=== PATIENT | female | born 1990 | race Caucasian/White ===

== ENCOUNTER 2020-08-08 07:30 | Outpatient (REF) | payer OTHER, SELFPAY ==
[2020-08-08 07:49] LABS: COVID-19 Test Negative (Negative)
== END 2020-08-08 07:31 | disposition home or self-care (01) ==
LOC: HO.LAB 07:30
PROVIDERS: PCP Internal Medicine; Visit Provider Internal Medicine
DX: Z20.828 Contact with and (suspected) exposure to other viral communicable diseases (principal)
CPT/HCPCS: 87635

== ENCOUNTER → 2020-08-14 14:50 | Outpatient (BNVA) | payer OTHER, SELFPAY | PROVIDERS: PCP Internal Medicine; Referring Provider Internal Medicine; Visit Provider Advanced Practice Midwife | DX: Z76.89 Persons encountering health services in other specified circumstances (principal) ==

== ENCOUNTER 2020-09-26 10:36 | Day surgery (SDC) | payer OTHER, SELFPAY ==
[2020-09-26 10:47] VITALS: BMI 33.8
--- NOTE | 2020-09-26 10:52 | P.CONAN_ITS ---
[facility] [place] Past Medical History Medical History Hypothyroid Monoallelic mutation of CDH1 gene Obesity (BMI 30-39.9) Family History Family History Father Hypercholesteremia Sleep apnea Stomach cancer HTN (hypertension) Mother Hypercholesteremia HTN (hypertension) COPD (chronic obstructive pulmonary disease) Migraine Maternal Grandfather Heart attack CVD (cardiovascular disease) HTN (hypertension) Maternal Grandmother Heart attack Bladder cancer Emphysema lung HTN (hypertension) CVD (cardiovascular disease) Paternal Grandmother Heart attack CHF (congestive heart failure) COPD (chronic obstructive pulmonary disease) Osteoporosis Paternal Grandfather Heart attack CHF (congestive heart failure) Diabetes mellitus Metastatic cancer to liver Lung metastasis Maternal Aunt Diabetes mellitus Bladder cancer Surgical History Surgical History Hx of endoscopy Hx of tonsillectomy Hx of wisdom tooth extraction Social History Social History (Updated 08/14/20 @ 15:02 by KONSTANTIN Machado) Alcohol intake: never Smoking Status: Never smoker Advance Directives: No Advance Directives Information Provided: No Gender identity: female Meds Allergies Allergy/AdvReac Type Severity Reaction Status Date / Time amoxicillin [AMOXICILLIN] Allergy Unknown HIVES, Rash Verified 08/14/20 15:01 Home Medications Medication Instructions Recorded Confirmed Type vitamin with calcium 1 tab PO DAILY 08/14/20 History no.72-iron 27 mg-folic acid 1 mg tablet Exam Exam Date and Time: September 26, 2020 1052 Airway Mallampati Class: I TM Dist: >3cm Neck ROM: Full Heart: RRR Lungs: CTA BL Assessment and Plan Assessment Anesthesia Assessment: Anesthesia Plan Discussed and Chart Reviewed Final Anesthetic Review NPO: Yes (Sip with water) ASA Class: II Final Preanesthetic Review: Consent Obtained/Reviewed and Anes Risks/Benef Reviewed Patient Risk: Intermediate Procedure Risk: Intermediate Anesthetic Plan Anesthetic Plan: MAC: Disposition: Standard PACU
--- NOTE | 2020-09-26 10:53 | MHC.SHP ---
Pre-Procedural Eval Section A The patient is an INPATIENT: No Changes since office visit: No Cold of Flu in the past 2 weeks, No New Medical Problems, No Changes in Medication and No Patient answered all questions The History & Physical has been completed within 30 days and I have reviewed it.: Yes Section B Chief Complaint: genetic gastric cancer syndrome Allergies: Allergies Allergy/AdvReac Type Severity Reaction Status Date / Time amoxicillin [AMOXICILLIN] Allergy Unknown HIVES, Rash Verified 08/14/20 15:01 Plan Patient has been examined and remains a candidate for the planned procedure
[2020-09-26 11:01] VITALS: BP 127/87; PULSE 101; RESP 16; TEMP 36.4; O2SAT 98
[2020-09-26 12:06] VITALS: BP 110/70; PULSE 91; RESP 14; TEMP 36.4; O2SAT 97
--- NOTE | 2020-09-26 12:10 | PM.OP ---
Brief Operative Note Date of Service: 09/26/20 Pre-op diagnosis: hereditary diffuse gastric cancer syndrome Post-op diagnosis: same (normal upper endoscopy) Procedure: EGD Surgeon: Jairo Lopez Anesthesia: MAC Estimated blood loss (mL): 10 Pathology: other (gastric biopsies) Condition: stable Disposition: PACU
[2020-09-26 12:21] VITALS: BP 113/79; PULSE 86; RESP 16; O2SAT 100
[2020-09-26 12:36] VITALS: BP 114/57; PULSE 67; RESP 16; O2SAT 100
--- NOTE | 2020-09-26 12:39 | OP_ITS ---
SURGEON: Jairo Lopez MD INDICATIONS: Hereditary diffuse gastric cancer syndrome. PREOPERATIVE DIAGNOSIS: POSTOPERATIVE DIAGNOSIS: PROCEDURE PERFORMED: Upper endoscopy with biopsy. ESTIMATED BLOOD LOSS: COMPLICATIONS: ANESTHESIA: ASSISTANTS: SPECIMENS: MEDICATIONS: Monitored anesthesia care. DESCRIPTION OF PROCEDURE: History and physical performed. The risks and benefits of the procedure were explained to the patient. Informed consent was obtained. The patient was placed in the left lateral decubitus position. The Olympus video gastroscope was introduced into the esophagus, stomach, and duodenum. Examination was performed and the scope was removed. She tolerated the procedure well and was taken to recovery area in stable condition. FINDINGS: Esophagus: The esophagus was normal. Stomach: The stomach showed no evidence of masses, ulcers, or polyps. The mucosa was normal. Irrigation with simethicone and acetylcysteine was used. Distensibility appeared normal. There were no pale areas or raised lesions. Biopsies were obtained in the antrum, pre-pyloric area, body, transition zone, fundus, and cardia. Duodenum: The bulb and second portion were normal. IMPRESSION: Normal upper endoscopy. RECOMMENDATION: Repeat upper endoscopy recommended in 1 year. MD CHERIE Messina/ANNALISE / [phone]
--- NOTE | 2020-09-26 13:01 | HO.POSTANES ---
Post Anesthesia Evaluation Post Anesthesia Evaluation Vital Signs: Vital Signs Temp Pulse Resp BP Pulse Ox 09/26/20 12:36 97.5 F 67 16 114/57 L 100 09/26/20 12:21 86 16 113/79 100 09/26/20 12:06 97.5 F 91 14 110/70 97 09/26/20 11:01 97.5 F 101 H 16 127/87 98 Anesthesia: Monitored Mental Status: Awake Pain Control: Satisfactory Nausea/Vomiting: None Hydration: Adequate Anesthesia-Related Issues: No Anes. Related Issues
== END 2020-09-26 13:05 | disposition home or self-care (01) ==
PROVIDERS: PCP Internal Medicine; Visit Provider Internal Medicine Gastroenterology
PROC: 0DJ08ZZ Inspection of Upper Intestinal Tract, Via Natural or Artificial Opening Endoscopic (ICD-10-PCS; CPT 43235; principal; 2020-09-26 11:30)
DX: Z15.09 Genetic susceptibility to other malignant neoplasm (principal); Z83.71 Family history of colonic polyps; Z88.0 Allergy status to penicillin
CPT/HCPCS: 43239; 88305; 88341; 88342

== ENCOUNTER 2020-10-27 07:12 | Outpatient (REF) | payer OTHER, SELFPAY ==
[2020-10-27 07:38] LABS: COVID-19 Test Negative (Negative)
== END 2020-10-27 07:13 | disposition home or self-care (01) ==
LOC: HO.EMPCOV 07:12
PROVIDERS: Visit Provider Internal Medicine
DX: Z20.822 Contact with and (suspected) exposure to COVID-19 (principal)
CPT/HCPCS: 36415; 87635; C9803

== ENCOUNTER 2020-10-27 12:21 | Outpatient (REF) | payer OTHER, SELFPAY ==
[2020-10-27 13:35] LABS: Anion Gap 16 (12-20); Blood Urea Nitrogen 9 mg/dL (9-16); Calcium 9.3 mg/dL (8.4-10.2); Carbon Dioxide 24 mmol/L (22-29); Chloride 106 mmol/L (96-108); Estimated Glomerular Filt Rate > 60; Glucose Random 95 mg/dL (60-115); Sodium 142 mmol/L (135-145)
== END 2020-10-27 12:22 | disposition home or self-care (01) ==
LOC: HO.LNP 12:21
PROVIDERS: Visit Provider Surgery Surgical Oncology
DX: C16.9 Malignant neoplasm of stomach, unspecified (principal)
CPT/HCPCS: 80048

== ENCOUNTER 2020-10-31 07:44 | Outpatient (REF) | payer OTHER, SELFPAY ==
--- NOTE | 2020-10-31 07:47 | CT_ITS ---
EXAMINATION: CT ABDOMEN AND PELVIS WITHOUT AND WITH CONTRAST CLINICAL INFORMATION: Gastric cancer. COMPARISON: CT abdomen and pelvis 06/16/2015 TECHNIQUE: Multidetector volumetric imaging was performed of the abdomen and pelvis before and after the IV administration of 85 mL of Omnipaque 300 intravenous contrast. Sagittal and coronal reformatted images were obtained on the technologist's workstation. This CT examination was performed using dose optimization techniques as appropriate, variously including the following: *Automated exposure control *Adjustment of mA and/or kV according to patient size (this includes techniques or standardized protocols for targeted exams where dose is matched to indication/reason for exam; i.e. extremities or head) *Use of iterative reconstruction technique DLP: 555 mGy-cm FINDINGS: LUNG BASES: Minimal atelectatic changes seen in the right lung base. The heart size is normal. LIVER, GALLBLADDER, AND BILIARY TREE: The liver is normal in size, shape, and hypoattenuated. No focal hepatic lesion or biliary ductal dilatation is present. The gallbladder is unremarkable with no evidence of radiopaque gallstones, gallbladder wall thickening, or obvious pericholecystic inflammatory changes. PANCREAS: Unremarkable. SPLEEN: Unremarkable. ADRENAL GLANDS: Unremarkable. KIDNEYS AND URETERS: The kidneys are normal in size, shape, and attenuation. No hydronephrosis, hydroureter, or calculi seen. No perinephric stranding. BLADDER: Unremarkable. GASTROINTESTINAL TRACT: There is scattered stool seen in the right colon. Oral contrast opacifies the entire colon and the small bowel loops which are normal caliber. There is nonspecific minimal mural prominence of transverse and descending colon likely due to nondistention. The appendix is normal caliber. There is nonspecific mild mural thickening of the fundal stomach. The rest of the stomach appears normal caliber. The fat surrounding the stomach is preserved. ABDOMINAL WALL: No significant hernia is appreciated. LYMPH NODES: There are small shotty lymph nodes in the retroperitoneum and ileocolic mesentery with the largest lymph node measuring 0.92 x 0.6 cm in ileocolic mesentery. VASCULAR: Unremarkable. PELVIC VISCERA: The uterus is anteverted and appears unremarkable. No adnexal mass seen. OSSEOUS STRUCTURES: Unremarkable. CT/CT abdomen pelvis wo/w con IMPRESSION: Nonspecific mild mural thickening of the fundal stomach but no abnormal fat stranding or abnormal lymph nodes seen in the vicinity. Nonspecific mild mural thickening of the nondistended transverse and descending colon. No pericolic fat stranding.
[2020-10-31] MEDS: iohexoL 350 MG/ML 100 ML INFUS..BTL IV (09:08)
== END 2020-10-31 07:45 | disposition home or self-care (01) ==
LOC: HO.CT 07:44
PROVIDERS: Visit Provider Surgery Surgical Oncology
DX: C16.9 Malignant neoplasm of stomach, unspecified (principal)
CPT/HCPCS: 74178; Q9967

== ENCOUNTER 2020-11-12 07:15 | Outpatient (REF) | payer OTHER, SELFPAY ==
[2020-11-12 07:24] LABS: COVID-19 Test Positive (Negative)
== END 2020-11-12 07:16 | disposition home or self-care (01) ==
LOC: HO.EMPCOV 07:15
PROVIDERS: Visit Provider Internal Medicine
DX: Z20.822 Contact with and (suspected) exposure to COVID-19 (principal)
CPT/HCPCS: 36415; 87635; C9803

== ENCOUNTER 2020-12-02 11:14 | Outpatient (REF) | payer OTHER, SELFPAY ==
--- NOTE | ~2020-12-02 | PE_ITS ---
EXAMINATION: Fluorine-18 FDG PET/CT Scan CLINICAL INDICATION: Initial treatment management. Gastric cancer, staging. PROCEDURE: 79 minutes following the intravenous administration of 16.3 mCi of fluorine 18 FDG, images from the base of the skull to the mid thighs were obtained using a combined PET/CT scanner with CT scan based attenuation correction. No oral contrast was administered. No intravenous contrast was administered. Transverse, coronal, sagittal, and volume reconstruction projections were obtained. The patient's blood glucose as determined by a finger stick, was 68 mg/dl immediately prior to injection. Total CT exam dose-length product 610 mGy-cm * These CT images were obtained using dose optimization techniques as appropriate, variously including the following: Automated exposure control * Adjustment of mA and/or kV according to patient size (this includes techniques or standardized protocols for targeted exams where dose is matched to indication/reason for exam; i.e. extremities or head) * Use of iterative reconstruction technique COMPARISON: No previous PET/CT scan is available for comparison. The diagnostic CT scan of the abdomen and pelvis, dated 10/31/2020, is available for comparison. FINDINGS: (Slice numbers described in this report are numbered superiorly to inferiorly with slice #1 in the head) NECK AND VISUALIZED HEAD: Bilateral cervical level 2A FDG avid lymph nodes are present, the most prominent on the left showing SUVmax 5.8, slice 31/267 and measuring 1.2 x 1.0 cm in largest transverse dimensions. There is also prominently increased FDG activity in the midline tongue base showing SUVmax 7.6, slice 33/267 and this appears to be associated with some soft tissue thickening and obliteration of the left vallecula. No other foci of abnormal FDG activity are present in the neck or visualized head. All of the other activity appears physiological. There is no additional cervical lymphadenopathy. THORAX: No foci of abnormal FDG activity are present within the chest. No pulmonary nodules are visualized. There is no pleural or pericardial fluid, or pneumothorax. There is a cluster of subcentimeter right axillary lymph nodes which show mildly increased FDG activity, SUVmax 3.8, slice 71/267. No additional axillary, mediastinal, or supraclavicular lymphadenopathy is present. ABDOMEN AND PELVIS: Bilateral FDG avid adnexal foci are present, likely representing physiological ovarian activity. There is also prominent focus of increased FDG activity in the cecal region, and this is associated with some soft tissue density that may represent some bowel wall thickening at this site. This shows SUVmax 11.4, slice 171/267. No other suspicious foci of increased FDG activity are present in the abdomen or pelvis. Mild diffuse FDG activity in the remainder the gastrointestinal tract is noted and is probably physiological. There are no foci of abnormally increased FDG activity in the stomach. The liver, gallbladder, spleen, kidneys, adrenal glands and pancreas appear unremarkable. There is no retroperitoneal, mesenteric, pelvic or inguinal lymphadenopathy. MUSCULOSKELETAL: No foci of abnormal FDG activity are present in the osseous structures. There is a subcentimeter dense sclerotic focus in the left posterior aspect of the T7 vertebral body with no associated abnormal FDG activity, probably a benign bone island. No additional suspicious sclerotic or lytic lesions are visualized. VASCULAR: No significant abnormalities are present. PET/PET CT fusion skull to thigh IMPRESSION: 1. No FDG avid lesion is visualized in the stomach. 2. There is focally increased activity in the midline tongue base with some associated soft tissue swelling. This is suspicious for a malignant focus. Further characterization of this with direct visualization and IV contrast enhanced CT imaging of the neck soft tissues is recommended. 3. Bilateral FDG avid cervical level IIa lymphadenopathy and FDG avid right axillary lymph nodes are noted. These are nonspecific and could be either inflammatory or malignant in etiology. 4. Bilateral FDG avid adnexal foci probably represent physiological ovarian activity but are nonspecific. 5. An FDG avid soft tissue focus is present in the cecum. While this could represent physiological bowel activity, the very focal appearance is of concern for a malignant lesion. Both this the previously described adnexal foci could be further characterized with MRI of the abdomen and pelvis performed without and with intravenous contrast. 6. No additional abnormalities suspicious for metastatic or other malignant lesions are noted.
== END 2020-12-02 11:15 | disposition home or self-care (01) ==
LOC: HO.PET 11:14
PROVIDERS: Visit Provider Surgery Surgical Oncology
DX: Z13.89 Encounter for screening for other disorder (principal)

== ENCOUNTER → 2021-01-06 13:25 | Outpatient (BNV) | payer OTHER, SELFPAY | PROVIDERS: PCP Internal Medicine; Visit Provider Internal Medicine | DX: D50.9 Iron deficiency anemia, unspecified (principal); Z85.028 Personal history of other malignant neoplasm of stomach | CPT/HCPCS: 99204; 99213; 99214 ==

== ENCOUNTER 2021-03-27 07:50 | Outpatient (REF) | payer OTHER, SELFPAY ==
[2021-03-27 07:55] LABS: MANUAL DIFF FLAG NO
[2021-03-27 08:04] LABS: Basophils Percent Auto 0.5 % (0-2); Eosinophils Absolute Auto 0.1 X10*3/uL (0.0-0.4); Eosinophils Percent Auto 1.2 % (0-4); Hematocrit 38.7 % (37-47); Hemoglobin 12.4 g/dl (12.0-16.0); Imm Gran Abs Auto 0.01 X10*3/uL (0.00-0.03); Imm Gran Pct Auto 0.2 % (0.0-0.4); Lymphocytes Absolute Auto 2.6 X10*3/uL (1.2-4.9); Mean Corpuscular Hemoglobin 27.2 pg (27.0-33.0); Mean Corpuscular Volume 84.9 fL (80-98); Mean Platelet Volume 10.5 fL (9.4-12.3); Monocytes Absolute Auto 0.6 X10*3/uL (0.1-1.2); Monocytes Percent Auto 8.7 % (2-11); Neutrophils Absolute Auto 3.3 X10*3/uL (2.0-8.3); Neutrophils Percent Auto 49.4 % (45-73); Platelet Count 262 X10*3/uL (160-400); Red Blood Count 4.56 X10*6/uL (4.20-5.50); Red Cell Distribution Width 13.5 % (11.0-16.0); White Blood Count 6.6 X10*3/uL (4.8-10.8)
[2021-03-27 08:28] LABS: Alanine Aminotransferase 18 U/L (0-31); Albumin Level 4.8 g/dL (3.5-5.0); Alkaline Phosphatase 111 U/L (39-117); Anion Gap 11 (12-20); Aspartate Amino Transferase 20 U/L (5-31); Bilirubin Total 0.4 mg/dL (0.0-1.0); Blood Urea Nitrogen 14 mg/dL (9-16); Calcium 9.6 mg/dL (8.4-10.2); Carbon Dioxide 27 mmol/L (22-29); Chloride 107 mmol/L (96-108); Estimated Glomerular Filt Rate > 60; Glucose Random 71 mg/dL (60-115); Iron 58 mcg/dL (30-160); Magnesium 2.2 mg/dL (1.6-2.6); Percent Iron Saturation 16 % (15-50); Sodium 141 mmol/L (135-145); Total Iron Binding Capacity 356 mcg/dL (228-428); Total Protein 7.8 g/dL (6.5-8.0); Unsaturated Iron Binding 298 ug/dL
[2021-03-27 08:49] LABS: Free T4 (Free Thyroxine) 1.18 ng/dL (0.71-1.85); Thyroid Stimulating Hormone 1.77 uIU/mL (0.32-4.0); Vitamin D 25-OH Total 36.4 ng/mL (>30)
[2021-03-27 09:17] LABS: Folate > 20.0 ng/mL (> or = 4.0); Vitamin B12 307 pg/mL (200-900)
[2021-03-31 10:02] LABS: Calcium (PTHI) 9.9 mg/dL (8.6-10.2); PTHI 41 pg/mL (14-64)
== END 2021-03-27 07:51 | disposition home or self-care (01) ==
LOC: HO.LNP 07:50
PROVIDERS: Visit Provider Internal Medicine
DX: E03.9 Hypothyroidism, unspecified (principal); D64.9 Anemia, unspecified; Z98.890 Other specified postprocedural states
CPT/HCPCS: 80053; 82306; 82607; 82746; 83540; 83735; 83970; 84439; 84443; 85025

== ENCOUNTER 2021-03-31 11:04 | Outpatient (REF) | payer OTHER, SELFPAY ==
--- NOTE | ~2021-03-31 | PE_ITS ---
EXAMINATION: PET/CT FUSION SKULL TO THIGH CLINICAL INFORMATION: Gastric CA. Restaging. COMPARISON: 12/02/2020 PET/CT fusion. TECHNIQUE: Following intravenous administration of 14.7 mCi of F-18 FDG in the right antecubital vein, whole-body PET imaging study was performed 60 minutes later. 3.[address] transmission scan was obtained for correlative imaging without oral IV contrast. Baseline glucose measures 8 mg/DL. Radiation dose DLP 465.92 mGy-cm. FINDINGS: SKULL BASE AND NECK: There is no abnormal metabolic activity seen skull base or the neck. Previously seen level 2A lymph node metabolic activity has resolved. There is moderate metabolic activity seen in the mylohyoid and pharyngeal constrictor muscles similar to previous study. Activity seen in the base of the tongue on the previous exam is not visualized on the present exam. No additional metabolic activity seen. On CT visualized brain parenchyma is normal. No calvarial abnormality seen. The bilateral paranasal sinuses and mastoid air cells are well aerated. No abnormal-sized neck lymph node seen. No abnormality seen in the floor of the tongue or the oral cavity to suspect annular lesion. CHEST: No abnormal metabolic activity seen in the axilla, mediastinum or the lung parenchyma. On CT the lungs are well expanded and clear. Minimal atelectatic changes are seen in the right lung base. The heart size is normal. There is no mediastinal mass or lymphadenopathy seen. ABDOMEN AND PELVIS: There is no abnormal metabolic activity seen in the abdomen especially in the left upper quadrant. Nonspecific metabolic activity seen in the right colon with an SUV of 2.40. Normal physiological activity seen in both kidneys, ureters and bladder. Mild physiological activity seen in bilateral adnexa likely ovaries probably related to menses. There are no radiopaque renal calculi seen. There is scattered stool and gas seen in the colon. There are postsurgical gastric changes present. No recurrent mass is identified. No abnormal-sized lymph node seen. Suspect 2 mm small radiopaque calculi upper midpole left kidney. MSK: There is no abnormal metabolic activity seen. PET/PET CT fusion skull to thigh IMPRESSION: Previously seen focal metabolic activity in the left neck lymph node and right axilla lymph node has resolved. On the present PET CT there is no abnormal metabolic activity seen to suspect any metastatic disease. Mild metabolic activity seen in the mylohyoid and constrictor muscles similar to previous study. No abnormal activity seen in the left upper quadrant or the abdomen and pelvis. Essentially unremarkable PET CT exam performed 03/31/2021. Physiological activity seen in the kidneys, ureters and the bladder. Mild physiological activity bilateral ovaries likely related to menstrual cycle.
== END 2021-03-31 11:05 | disposition home or self-care (01) ==
LOC: HO.PET 11:04
PROVIDERS: Visit Provider Internal Medicine
DX: Z13.89 Encounter for screening for other disorder (principal)

== ENCOUNTER 2021-05-01 12:21 | Outpatient (REF) | payer OTHER, SELFPAY ==
--- NOTE | ~2021-05-01 | MM_ITS ---
EXAMINATION: MM SCREENING DIGITAL BREAST TOMOSYNTHESIS, BILATERAL CLINICAL INFORMATION: Age 30. CDH 1 mutation (increased risk for lobular breast cancer). Screening. Asymptomatic. No prior breast imaging. COMPARISON: None (current study represents initial baseline exam). TECHNIQUE: Digital breast tomosynthesis is performed in both the craniocaudal and mediolateral oblique views along with computer-aided detection (CAD). Synthesized 2D images are generated from the tomosynthesis. FINDINGS: There are scattered areas of fibroglandular density (ACR BI-RADS breast composition Category b). There are no significant masses, abnormal calcifications, or other abnormalities. The axilla and skin contours are unremarkable. MM/MM tomosynthesis screening BI IMPRESSION: No mammographic evidence of malignancy. ASSESSMENT: BI-RADS 1: Negative RECOMMENDATION: 1. Routine annual mammography screening. 2. Additional adjunct screening with breast MRI may be considered. This patient's information was entered into a reminder system with a target due date for their next mammogram.
== END 2021-05-01 12:22 | disposition home or self-care (01) ==
LOC: HO.MAMMO 12:21
PROVIDERS: Visit Provider Internal Medicine
DX: Z12.31 Encounter for screening mammogram for malignant neoplasm of breast (principal)
CPT/HCPCS: 77063; 77067

== ENCOUNTER → 2021-06-29 12:30 | Outpatient (BNVA) | payer OTHER, SELFPAY | PROVIDERS: PCP Internal Medicine; Referring Provider Internal Medicine; Visit Provider Internal Medicine ==

== ENCOUNTER 2021-08-10 11:26 | Outpatient (REF) | payer OTHER, SELFPAY ==
[2021-08-10 12:23] LABS: Free T4 (Free Thyroxine) 1.17 ng/dL (0.71-1.85); Thyroid Stimulating Hormone 1.87 uIU/mL (0.32-4.0)
== END 2021-08-10 11:27 | disposition home or self-care (01) ==
LOC: HO.LNP 11:26
PROVIDERS: Visit Provider Internal Medicine
DX: E03.9 Hypothyroidism, unspecified (principal)
CPT/HCPCS: 84439; 84443

== ENCOUNTER → 2021-09-04 14:28 | Outpatient (BNVA) | payer OTHER, SELFPAY | PROVIDERS: PCP Internal Medicine; Visit Provider Advanced Practice Midwife ==

== ENCOUNTER 2021-11-18 16:31 | Outpatient (REF) | payer OTHER, SELFPAY ==
--- NOTE | ~2021-11-18 | MR_ITS ---
EXAMINATION: MR BREAST WITHOUT AND WITH CONTRAST, BILATERAL CLINICAL INFORMATION: High-risk screening. CDH 1 mutation. COMPARISON: No previous breast MRI. Mammogram 05/01/2021 TECHNIQUE: Imaging was performed with a dedicated breast coil. Prior to the administration of contrast, bilateral axial T1 and bilateral axial T2 weighted sequences were obtained. After the uneventful administration of?6 mL of Gadavist, dynamic contrast-enhanced VIBRANT series through the breasts in the axial plane were performed. Subtracted images were performed and reviewed. A delayed sagittal sequence through both breasts was acquired. Additionally, CAD post-processing, including maximum intensity projections, 3-D reconstructions and kinetic analysis, were performed an independent workstation and reviewed by the interpreting radiologist is a portion of this exam. FINDINGS: There is mild background parenchymal enhancement. LEFT BREAST: In the 4 o'clock position of the left breast, 3.6 cm from the nipple, there is a focus of enhancement measuring approximately 4 mm in size with mildly irregular margins. There is no T2 correlate. Finding demonstrates progressive or type I enhancement and recommends the dominant area of enhancement in both breasts (image 59, series 100). In this high-risk patient, recommend further evaluation with MRI-guided biopsy. No other suspicious nonmass or mass enhancement within the left breast. Review of the T2-weighted images demonstrates no additional findings. Review of the kinetic images demonstrates no additional suspicious findings. RIGHT BREAST: No suspicious masslike or non-masslike enhancement. No abnormal skin thickening or nipple retraction. No abnormal architectural distortion. Review of the T2 weighted images demonstrates no fibrocystic changes or dilated ducts. Review of kinetic images reveals no additional findings. There is no suspicious internal mammary chain or axillary adenopathy. Limited views of the chest and abdomen are unremarkable. MR/MR breast BI wo/w con IMPRESSION: Indeterminate enhancing focus, left breast, 4 o'clock. No MR specific evidence of right breast malignancy. ASSESSMENT: LEFT BREAST: BI-RADS 4 - Suspicious abnormality - Biopsy should be considered. RIGHT BREAST: BI-RADS 1-Negative RECOMMENDATIONS: MRI-guided biopsy, left breast, 4 o'clock Biopsy recommendation called to Dr. Yip on the morning of 11/23/2021.
== END 2021-11-18 16:32 | disposition home or self-care (01) ==
LOC: HO.MRI 16:31
PROVIDERS: PCP Internal Medicine; Visit Provider Internal Medicine
DX: C50.919 Malignant neoplasm of unspecified site of unspecified female breast (principal); Z15.09 Genetic susceptibility to other malignant neoplasm
CPT/HCPCS: 77049; A9585

== ENCOUNTER 2021-12-08 08:23 | Outpatient (REF) | payer OTHER, SELFPAY ==
--- NOTE | ~2021-12-08 | US_ITS ---
EXAMINATION: US ABDOMEN COMPLETE CLINICAL INFORMATION: Elevated LFTs. COMPARISON: CT abdomen and pelvis without and with contrast 10/31/2020. XR abdomen KUB 06/16/2015. TECHNIQUE: Real-time imaging of the abdominal viscera. FINDINGS: PANCREAS: The head and body the pancreas are normal. The tail is not well visualized due to bowel gas. ABDOMINAL AORTA: The proximal, mid, and distal segments are normal in caliber. INFERIOR VENA CAVA: Visualized portions are normal. LIVER: The liver is normal in size. The liver contour is normal. Liver echotexture is slightly increased. No focal hepatic lesion. There is no intrahepatic biliary duct dilatation seen. GALLBLADDER: The gallbladder is physiologically distended. Multiple mobile gallstones are present. No evidence of gallbladder wall thickening or pericholecystic fluid. COMMON BILE DUCT: Normal in caliber measuring 0.5 cm in diameter. RIGHT KIDNEY: Normal. No hydronephrosis. No renal calculi or focal parenchymal lesions. The kidney measures 11.1 cm in maximum dimension. LEFT KIDNEY: Normal. No hydronephrosis. No renal calculi or focal parenchymal lesions. The kidney measures 10.6 cm in maximum dimension. SPLEEN: Normal. The spleen measures 10.3 cm in maximum dimension. FREE FLUID: None. US/US abdomen complete IMPRESSION: Slightly echogenic liver questionable for mild fatty infiltration. Gallstones. Limited visualization of the tail the pancreas.
== END 2021-12-08 08:24 | disposition home or self-care (01) ==
LOC: HO.US 08:23
PROVIDERS: PCP Internal Medicine; Visit Provider Internal Medicine
DX: C16.9 Malignant neoplasm of stomach, unspecified (principal); R74.8 Abnormal levels of other serum enzymes; K80.80 Other cholelithiasis without obstruction
CPT/HCPCS: 76700

== ENCOUNTER 2021-12-10 07:51 | Outpatient (REF) | payer OTHER, SELFPAY ==
--- NOTE | ~2021-12-10 | MM_ITS ---
EXAMINATION: MR GUIDED VACUUM-ASSISTED CORE BIOPSY BREAST, LEFT MM DIGITAL MAMMOGRAPHY POST BIOPSY, LEFT CLINICAL INFORMATION: 30-year-old female with CDH 1 mutation. High-risk MR screening demonstrates focus of type I enhancement 4:00 position left breast. No T2 correlate. MR guided sampling is suggested. COMPARISON: Baseline MR breasts 12/06/2021, baseline mammography 05/01/2021. TECHNIQUE/PROCEDURE: Informed consent was obtained from the patient after discussion of the benefits, risks, and alternatives to biopsy today. Patient appeared to understand. Gave opportunity for questions. Patient signed consent form. Biopsy is performed under MRI guidance using breast surface coil. Imaging is performed without and with use of 6 mL Gadavist gadolinium contrast. Linq3 introducer localization system is used with grid. LESION: Focus enhancement 4:00 position, no T2 correlate, type I enhancement, 3.6 cm from nipple. LOCAL ANESTHESIA: 8 mL carbonated 1% lidocaine; 11 mL 1 % lidocaine with epinephrine. NEEDLE: [employer] 9-gauge vacuum assisted core biopsy device. APPROACH: Lateral medial. CORES: 8. CLIP: [employer] dumbbell (spool) shape. POSTPROCEDURE UNILATERAL DIGITAL MAMMOGRAM: Mammography is performed using digital mammography in CC and ML views. There are scattered areas of fibroglandular density (ACR BI-RADS breast composition Category b). The clip marker is in position. There is likely mild medial accordion effect by approximately 1 cm. No gross hematoma. The patient tolerated the procedure well. No immediate complications. Home instructions reviewed with the patient. Final pathology results are pending. MM/MM diagnostic mammo unilat LT IMPRESSION: 1. Status post MRI guided vacuum-assisted core biopsy left breast with clip placement. 2. Final pathology results pending. An addendum report will be issued.
[2021-12-10] MEDS: Sodium Bicarbonate 8.4% 50 MEQ/50 ML VIAL SUBCUT (09:30)
[2021-12-10] MEDS: Lidocaine HCl 1%/Epi 1:100,000 20 ML VIAL INFILTRATI (09:32)
[2021-12-10] MEDS: Lidocaine HCl 1 % MPF 5 ML VIAL SUBCUT ×2 (09:33→09:35)
== END 2021-12-10 07:52 | disposition home or self-care (01) ==
LOC: HO.MRI 07:51
PROVIDERS: PCP Internal Medicine; Visit Provider Internal Medicine
DX: R92.8 Other abnormal and inconclusive findings on diagnostic imaging of breast (principal); N60.32 Fibrosclerosis of left breast; N62 Hypertrophy of breast
CPT/HCPCS: 19085; 77065; 88305; A4648; A9585

== ENCOUNTER 2021-12-31 13:59 | Outpatient (REF) | payer OTHER, SELFPAY ==
--- NOTE | ~2021-12-31 | MM_ITS ---
EXAMINATION: BONE DENSITOMETRY CLINICAL INDICATION: Encounter for screening for osteoporosis. Age 31. COMPARISON: None (current study represents initial baseline exam). TECHNIQUE: Using a [employer] DXA System (software version: 13.1) manufactured by [employer], dual-energy x-ray absorptiometry was performed of the lumbar spine and left hip. The images are of good technical quality. Based on ISCD (International Society for Clinical Densitometry) standards of reporting, Z-scores instead of T-scores are reported in this premenopausal woman. Summary results are attached. FINDINGS: AP SPINE L1-L4: BMD 1.323 g/cm2, T-score 1.2, Z-score 1.4, Z-score within expected range for age. LEFT FEMUR, NECK: BMD 0.839 g/cm2, T-score -1.4, Z-score -1.2, Z-score within expected range for age. LEFT FEMUR, TOTAL: BMD 0.943 g/cm2, T-score -0.5, Z-score -0.3, Z-score within expected range for age. IDENTIFIED RISK FACTORS: Secondary osteoporosis, (part of stomach removed). HISTORY OF FRACTURE: None listed. MEDICATIONS: Calcium or multivitamin. MM/XR DEXA axial skeleton IMPRESSION: 1. DIAGNOSIS: Based on the lowest Z-score value of -1.2 in the femoral neck, the patient's bone density is within the expected range for age. 2. 10-YEAR FRACTURE RISK PREDICTION, FRAX: Not performed in this patient outside the age range of 40-90 years. 3. Treatment Recommendations: NOF guidelines recommend consideration for treatment in postmenopausal women and men age 50 and older presenting with the following: -A hip or vertebral (clinical or morphometric) fracture. -T-score less than or equal to -2.5 at the femoral neck or spine after appropriate evaluation to exclude secondary causes. -Low bone mass at the hip or spine and a 10-year fracture probability by FRAX of greater than or equal to 3% for hip fracture or greater than or equal to 20% for major osteoporotic fracture based on the [place] adapted WHO algorithm. 4. Other Recommendations: All treatment decisions require clinical judgment and consideration of individual patient factors, including patient preferences, comorbidities, previous drug use, risk factors not captured in the FRAX model (e.g. frailty, falls, vitamin D deficiency, increased bone turnover, interval significant decline in bone density) and possible under or overestimation of fracture risk by FRAX. FUTURE SCAN RECOMMENDATION: People with diagnosed cases of osteoporosis or at high risk for fracture should have regular bone mineral density tests. For patients eligible for Medicare, routine testing is allowed once every 2 years. The testing frequency can be increased to one year for patients who have rapidly progressing disease, those who are receiving or discontinuing medical therapy to restore bone mass, or have additional risk factors.
== END 2021-12-31 14:00 | disposition home or self-care (01) ==
LOC: HO.MAMMO 13:59
PROVIDERS: PCP Internal Medicine; Visit Provider Internal Medicine Medical Oncology
DX: Z13.820 Encounter for screening for osteoporosis (principal); Z90.3 Acquired absence of stomach [part of]; Z79.899 Other long term (current) drug therapy
CPT/HCPCS: 77080

== ENCOUNTER 2022-02-12 08:56 | Day surgery (SDC) | payer OTHER, SELFPAY ==
[2022-02-08 11:13] VITALS: BMI 23.9
--- NOTE | 2022-02-11 10:02 | P.CONAN_ITS ---
Documented by User: Beatriz Smith NP 02/11/22 10:04 HPI - Anesthesia Eval Consult details Narrative: 31yo F for Colonoscopy s/p total gastrectomy 12/2020 r/t stomach ca PMFSH Active Problems Active Problems: All Active Problems (Updated 11/27/21 @ 11:30 by Karen Green PA-C) Hypothyroid (Acute ~09/2018) Well woman exam without gynecological exam (Acute) Gastric cancer (Acute ~09/2020) Past Medical History Medical History (Updated 11/27/21 @ 11:30 by Karen Green PA-C) Adenocarcinoma of stomach, stage 1 (~09/2020) Hypothyroid (~09/2018) Monoallelic mutation of CDH1 gene Family History Family History Father Sleep apnea Hypercholesteremia HTN (hypertension) Mother Migraine Hypercholesteremia COPD (chronic obstructive pulmonary disease) HTN (hypertension) Maternal Grandfather CVD (cardiovascular disease) Heart attack HTN (hypertension) Maternal Grandmother Bladder cancer CVD (cardiovascular disease) Heart attack Emphysema lung HTN (hypertension) Paternal Grandmother Osteoporosis CHF (congestive heart failure) Heart attack COPD (chronic obstructive pulmonary disease) Paternal Grandfather Lung metastasis Diabetes mellitus CHF (congestive heart failure) Heart attack Metastatic cancer to liver Maternal Aunt Diabetes mellitus Bladder cancer Paternal Aunt Stomach cancer Paternal Aunt Stomach cancer Surgical History Surgical History (Updated 01/04/22 @ 12:34 by Karen Green PA-C) History of endoscopy (~2019) History of gastrectomy (~12/2020) History of left breast biopsy (~2021) History of tonsillectomy (~2009) History of wisdom tooth extraction (~2010) Social History Social History Are you a primary care team coordinator scheduler to a significant other at home: No Alcohol intake: never Patient Tobacco Use Status: Tobacco use Unknown Second Hand Smoke Exposure: No Use of substances other than those prescribed or required for medical reasons: No Advance Directives Information Provided: Yes (brochure mailed) Advance Directives on File: No Gender identity: Female Meds Allergies Allergy/AdvReac Type Severity Reaction Status Date / Time amoxicillin [AMOXICILLIN] Allergy Unknown HIVES, Rash Verified 11/09/21 15:02 Home Medications Medication Instructions Recorded Confirmed Last Taken Type calcium citrate 500 mg (2,376 mg) 500 mg PO TID 01/06/21 02/08/22 Unknown History effervescent tablet multivitamin 1 tab PO DAILY 01/06/21 02/08/22 Unknown History Exam Exam Date and Time: February 11, 2022 1002 Height,Weight and Vital Signs: Height 5 ft 2.5 in Weight 60.328 kg Pertinent Lab Results Pertinent Lab Results: Laboratory Tests 11/09/21 11/09/21 15:43 15:43 WBC 7.9 Hgb 12.0 Hct 37.1 Plt Count 270 Sodium 142 Potassium 4.2 Chloride 108 Carbon Dioxide 27 BUN 15 Creatinine 0.67 Assessment and Plan Assessment Anesthesia Assessment: Chart Reviewed Documented by User: Judy Gardner MD 02/12/22 10:22 [facility] Past Medical History Medical History (Updated 11/27/21 @ 11:30 by Karen Green PA-C) Adenocarcinoma of stomach, stage 1 (~09/2020) Hypothyroid (~09/2018) Monoallelic mutation of CDH1 gene Family History Family History Father Sleep apnea Hypercholesteremia HTN (hypertension) Mother Migraine Hypercholesteremia COPD (chronic obstructive pulmonary disease) HTN (hypertension) Maternal Grandfather CVD (cardiovascular disease) Heart attack HTN (hypertension) Maternal Grandmother Bladder cancer CVD (cardiovascular disease) Heart attack Emphysema lung HTN (hypertension) Paternal Grandmother Osteoporosis CHF (congestive heart failure) Heart attack COPD (chronic obstructive pulmonary disease) Paternal Grandfather Lung metastasis Diabetes mellitus CHF (congestive heart failure) Heart attack Metastatic cancer to liver Maternal Aunt Diabetes mellitus Bladder cancer Paternal Aunt Stomach cancer Paternal Aunt Stomach cancer Family history of problems with anesthesia: No Surgical History Surgical History (Updated 01/04/22 @ 12:34 by Karen Green PA-C) History of endoscopy (~2019) History of gastrectomy (~12/2020) History of left breast biopsy (~2021) History of tonsillectomy (~2009) History of wisdom tooth extraction (~2010) History of Problems with Anesthesia: No Social History Social History Are you a primary care team coordinator scheduler to a significant other at home: No Alcohol intake: never Patient Tobacco Use Status: Tobacco use Unknown Second Hand Smoke Exposure: No Use of substances other than those prescribed or required for medical reasons: No Advance Directives Information Provided: Yes (brochure mailed) Advance Directives on File: No Gender identity: Female Meds Allergies Allergy/AdvReac Type Severity Reaction Status Date / Time amoxicillin [AMOXICILLIN] Allergy Unknown HIVES, Rash Verified 11/09/21 15:02 Home Medications Medication Instructions Recorded Confirmed Last Taken Type calcium citrate 500 mg (2,376 mg) 500 mg PO TID 01/06/21 02/08/22 Unknown History effervescent tablet multivitamin 1 tab PO DAILY 01/06/21 02/08/22 Unknown History Exam Height,Weight and Vital Signs: Height 5 ft 2.5 in Weight 60.328 kg Vital Signs Temp Pulse Resp BP Pulse Ox 02/12/22 09:00 97.1 F 84 18 118/80 100 Pertinent Lab Results Pertinent Lab Results: Laboratory Tests 11/09/21 11/09/21 15:43 15:43 WBC 7.9 Hgb 12.0 Hct 37.1 Plt Count 270 Sodium 142 Potassium 4.2 Chloride 108 Carbon Dioxide 27 BUN 15 Creatinine 0.67 Lab Results 02/12/22 Range/Units 09:00 Urine Test NEGATIVE (NEGATIVE) Airway Mallampati Class: I TM Dist: >3cm Neck ROM: Full Loose/Missing/Broken Teeth: No Heart: RRR Lungs: CTAB Assessment and Plan Assessment Anesthesia Assessment: Anesthesia Plan Discussed Final Anesthetic Review Family History of Problems with Anesthesia: No History of Problems with Anesthesia: No NPO: Yes ASA Class: II Final Preanesthetic Review: No Changes in Pt Med Stat, Meds/Allgs Chart Reviewed, Consent Obtained/Reviewed and Anes Risks/Benef Reviewed Patient Risk: Low Procedure Risk: Low Assessment/Block/Sedation in SS: Assess/Block/Sedation-SS Anesthetic Plan Anesthetic Plan: MAC: Disposition: Standard PACU
[2022-02-12 09:00] VITALS: BP 118/80; PULSE 84; RESP 18; TEMP 36.2; O2SAT 100
[2022-02-12 09:16] LABS: UPreg QC Valid YES; Urine Pregnancy NEGATIVE (NEGATIVE)
[2022-02-12] MEDS: Lactated Ringers 1,000 ML 100 ML IVCONT (09:38)
--- NOTE | 2022-02-12 10:17 | MHC.SHP ---
Pre-Procedural Eval Section A Date of Service: 02/12/22 Section B Chief Complaint: screening Details of Present Illness: see h and p nochanges Relevant Family History (Specify if Yes): Yes Relevant Social History: None Present Medications: see Short Stay Collaborative assessment Medical History: No relevant PMH History of Previous Operations: No relevant previous surgery Allergies: Allergies Allergy/AdvReac Type Severity Reaction Status Date / Time amoxicillin [AMOXICILLIN] Allergy Unknown HIVES, Rash Verified 11/09/21 15:02 Review of Systems Sugical H&P ROS: Negative: Constitution, Cardiovascular, Respiratory, Neurological, Psychiatric, Hem-Onc, Allergic/Immunologic, Gastrointestinal, Genitourinary, Musculoskeletal, Integumentary, Endocrine and Eyes/Ears/Nose/Throat Exam Surgical H&P Exam: Normal: HEENT, Normal: Heart, Normal: Lungs, Normal: Extremities, Normal: Abdomen, Normal: Skin and Normal: Neurological Plan Diagnosis/Plan: Unchanged I have reviewed the history and physical and performed a pertinent physical examination on my patient. No changes have occurred unless specified.
[2022-02-12 10:48] VITALS: BP 86/43; PULSE 80; RESP 16; TEMP 36.3; O2SAT 100
--- NOTE | 2022-02-12 10:48 | PM.OP ---
Brief Operative Note Date of Service: 02/12/22 Pre-op diagnosis: screening Post-op diagnosis: same Procedure: colonoscopy Surgeon: Jairo Lopez Anesthesia: MAC Was an Information Technology Account Manager used for this Procedure?: No Estimated blood loss (mL): 0 Pathology: none sent Condition: stable Disposition: PACU
[2022-02-12 10:53] VITALS: BP 98/49; PULSE 77; RESP 16; O2SAT 100
[2022-02-12 11:03] VITALS: BP 108/72; PULSE 72; RESP 16; O2SAT 95
[2022-02-12 11:18] VITALS: BP 116/68; PULSE 64; RESP 16; TEMP 36.2; O2SAT 97
[2022-02-12 11:33] VITALS: BP 116/66; PULSE 89; RESP 16; TEMP 36.4; O2SAT 98
--- NOTE | 2022-02-12 22:02 | OP_ITS ---
SURGEON: Jairo Lopez MD INDICATIONS: Colon cancer screening and history of diffuse hereditary gastric cancer syndrome. PREOPERATIVE DIAGNOSIS: POSTOPERATIVE DIAGNOSIS: PROCEDURE PERFORMED: Colonoscopy to the terminal ileum. ESTIMATED BLOOD LOSS: COMPLICATIONS: ANESTHESIA: ASSISTANTS: SPECIMENS: MEDICATIONS: Monitored anesthesia care. DESCRIPTION OF PROCEDURE: History and physical were performed. The risks and benefits of the procedure were explained to the patient. An informed consent was obtained. The patient was placed in left lateral decubitus position. A digital rectal exam was performed and was found to be normal. The Olympus pediatric video colonoscope was introduced into the rectum and advanced to the cecum without difficulty. The cecum was identified by transillumination, palpation, and identification of the ileocecal valve. Examination was performed. The scope was removed. She tolerated the procedure well. She was returned to recovery area in stable condition. FINDINGS: The terminal ileum was normal. The visualized colonic mucosa was normal. The quality of prep was good. There was no evidence of masses, ulcers, or polyps. Retroflexed examination was normal. IMPRESSION: Normal colonoscopy. RECOMMENDATION: 1. Follow up as needed. 2. Repeat colonoscopy should be considered in 3-5 years because of her medical history. MD CHERIE Messina/ANNALISE / [id number]
== END 2022-02-12 12:20 | disposition home or self-care (01) ==
PROVIDERS: Nurse Practitioner; PCP Internal Medicine; Visit Provider Internal Medicine Gastroenterology
PROC: 0DJD8ZZ Inspection of Lower Intestinal Tract, Via Natural or Artificial Opening Endoscopic (ICD-10-PCS; CPT 45378; principal; 2022-02-12 10:10)
DX: Z12.11 Encounter for screening for malignant neoplasm of colon (principal); Z85.028 Personal history of other malignant neoplasm of stomach; Z90.3 Acquired absence of stomach [part of]; Z15.09 Genetic susceptibility to other malignant neoplasm; Z83.71 Family history of colonic polyps; E03.9 Hypothyroidism, unspecified; R79.89 Other specified abnormal findings of blood chemistry; Z88.0 Allergy status to penicillin; Z79.899 Other long term (current) drug therapy
CPT/HCPCS: 45378; 81025

== ENCOUNTER → 2022-03-05 15:00 | Outpatient (BNVA) | payer SELFPAY | PROVIDERS: PCP Internal Medicine | DX: Z20.822 Contact with and (suspected) exposure to COVID-19 (principal) | CPT/HCPCS: 87811; C9803 ==

== ENCOUNTER 2022-05-14 14:49 | Outpatient (REF) | payer OTHER, SELFPAY | END 2022-05-14 14:50 | disposition home or self-care (01) | LOC: HO.LAB 14:49 | PROVIDERS: PCP Internal Medicine; Visit Provider Internal Medicine | DX: E03.9 Hypothyroidism, unspecified (principal) | CPT/HCPCS: 36415; 84439; 84443 ==

== ENCOUNTER 2022-08-26 14:40 | Outpatient (REF) | payer OTHER, SELFPAY ==
--- NOTE | ~2022-08-26 | MM_ITS ---
EXAMINATION: MM SCREENING DIGITAL BREAST TOMOSYNTHESIS, BILATERAL CLINICAL INFORMATION: Screening. Asymptomatic. Patient is seen CDH1 positive. Increased risk for breast cancer. COMPARISON: Mammography: December 10, 2021 and studies dating back to May 01, 2021 TECHNIQUE: Digital breast tomosynthesis is performed in both the craniocaudal and mediolateral oblique views along with computer-aided detection (CAD). Synthesized 2D images are generated from the tomosynthesis. FINDINGS: There are scattered areas of fibroglandular density (ACR BI-RADS breast composition Category b). There are no significant masses, abnormal calcifications, or other abnormalities. Clip from left breast biopsy anteriorly seen. MM/MM tomosynthesis screening BI IMPRESSION: No significant changes from prior exam. ASSESSMENT: BI-RADS 1: Negative RECOMMENDATION: Routine annual mammography screening. This patient's information was entered into a reminder system with a target due date for their next mammogram.
== END 2022-08-26 14:41 | disposition home or self-care (01) ==
LOC: HO.MAMMO 14:40
PROVIDERS: PCP Internal Medicine; Visit Provider Internal Medicine
DX: Z12.31 Encounter for screening mammogram for malignant neoplasm of breast (principal)
CPT/HCPCS: 77063; 77067

== ENCOUNTER 2022-10-21 15:18 | Outpatient (REF) | payer OTHER, SELFPAY ==
[2022-10-23 23:19] LABS: HPV mRNA E6/E7 rflx Not Detected (Not Detected)
== END 2022-10-21 15:19 | disposition home or self-care (01) ==
LOC: HO.LNP 15:18
PROVIDERS: PCP Internal Medicine; Visit Provider Advanced Practice Midwife
DX: Z01.419 Encounter for gynecological examination (general) (routine) without abnormal findings (principal)
CPT/HCPCS: 87624; 88142

== ENCOUNTER 2023-01-10 12:34 | Outpatient (REF) | payer OTHER, SELFPAY ==
[2023-01-10 15:18] LABS: Free T4 (Free Thyroxine) 1.24 ng/dL (0.71-1.85); Thyroid Stimulating Hormone 1.55 uIU/mL (0.32-4.0)
== END 2023-01-10 12:35 | disposition home or self-care (01) ==
LOC: HO.LAB 12:34
PROVIDERS: Internal Medicine; PCP Internal Medicine; Visit Provider Internal Medicine
DX: E03.9 Hypothyroidism, unspecified (principal)
CPT/HCPCS: 36415; 84439; 84443

== ENCOUNTER 2023-05-16 15:27 | Outpatient (REF) | payer OTHER, SELFPAY ==
[2023-05-16 15:56] LABS: Hematocrit 35.6 % (37.0-47.0); Hemoglobin 11.5 g/dl (12.0-16.0); Mean Corpuscular HGB Conc 32.3 g/dl (31.0-35.0); Mean Corpuscular Hemoglobin 28.8 pg (27.0-33.0); Mean Corpuscular Volume 89.2 fL (80.0-98.0); Mean Platelet Volume 9.6 fL (9.4-12.3); Platelet Count 181 X10*3/uL (160-400); Red Blood Count 3.99 X10*6/uL (4.20-5.50); Red Cell Distribution Width 13.2 % (11.0-16.0); White Blood Count 10.1 X10*3/uL (4.8-10.8)
[2023-05-16 16:07] LABS: Alanine Aminotransferase 13 U/L (0-31); Albumin Level 3.5 g/dL (3.5-5.0); Alkaline Phosphatase 65 U/L (39-117); Anion Gap 14 (12-20); Aspartate Amino Transferase 18 U/L (5-31); Bilirubin Total 0.2 mg/dL (0.0-1.0); Blood Urea Nitrogen 10 mg/dL (9-16); Calcium 9.3 mg/dL (8.4-10.2); Carbon Dioxide 22 mmol/L (22-29); Chloride 108 mmol/L (96-108); Estimated Glomerular Filt Rate > 60; Glucose Random 88 mg/dL (60-115); Iron 56 mcg/dL (30-160); Percent Iron Saturation 14 % (15-50); Potassium 3.6 mmol/L (3.3-5.1); Sodium 140 mmol/L (135-145); Total Iron Binding Capacity 395 mcg/dL (228-428); Total Protein 6.6 g/dL (6.5-8.0); Unsaturated Iron Binding 339 ug/dL
[2023-05-16 16:22] LABS: Ferritin 15 ng/mL (10-122); Thyroid Stimulating Hormone 1.54 uIU/mL (0.32-4.0)
[2023-05-16 17:27] LABS: Free T4 (Free Thyroxine) 0.97 ng/dL (0.71-1.85)
== END 2023-05-16 15:28 | disposition home or self-care (01) ==
LOC: HO.LAB 15:27
PROVIDERS: Internal Medicine; PCP Internal Medicine; Visit Provider Internal Medicine
DX: C16.9 Malignant neoplasm of stomach, unspecified (principal); E03.9 Hypothyroidism, unspecified
CPT/HCPCS: 36415; 80053; 82728; 83540; 84439; 84443; 85027

== ENCOUNTER 2023-08-15 15:04 | Outpatient (REF) | payer OTHER, SELFPAY ==
[2023-08-15 15:16] LABS: MANUAL DIFF FLAG NO
[2023-08-15 15:21] LABS: Basophils Percent Auto 0.3 % (0-2); Eosinophils Absolute Auto 0.1 X10*3/uL (0.0-0.4); Eosinophils Percent Auto 0.6 % (0-4); Hematocrit 35.6 % (37.0-47.0); Hemoglobin 11.5 g/dl (12.0-16.0); Imm Gran Abs Auto 0.08 X10*3/uL (0.00-0.03); Imm Gran Pct Auto 0.6 % (0.0-0.4); Lymphocytes Absolute Auto 2.6 X10*3/uL (1.2-4.9); Lymphocytes Percent Auto 21.2 % (20-40); Mean Corpuscular HGB Conc 32.3 g/dl (31.0-35.0); Mean Corpuscular Hemoglobin 29.1 pg (27.0-33.0); Mean Corpuscular Volume 90.1 fL (80.0-98.0); Mean Platelet Volume 9.6 fL (9.4-12.3); Monocytes Absolute Auto 1.2 X10*3/uL (0.1-1.2); Monocytes Percent Auto 9.4 % (2-11); Neutrophils Absolute Auto 8.3 x10*3/uL (2.0-8.3); Neutrophils Percent Auto 67.9 % (45-73); Platelet Count 205 X10*3/uL (160-400); Red Blood Count 3.95 X10*6/uL (4.20-5.50); Red Cell Distribution Width 13.4 % (11.0-16.0); White Blood Count 12.3 X10*3/uL (4.8-10.8)
== END 2023-08-15 15:05 | disposition home or self-care (01) ==
LOC: HO.LAB 15:04
PROVIDERS: PCP Internal Medicine; Visit Provider Obstetrics & Gynecology Female Pelvic Medicine and Reconstructive Surgery
DX: Z34.83 Encounter for supervision of other normal pregnancy, third trimester (principal)
CPT/HCPCS: 36415; 85025

== ENCOUNTER 2024-04-16 10:14 | Emergency (ER) | payer OTHER, SELFPAY ==
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
[2024-04-16 10:43] VITALS: BP 123/79; PULSE 111; RESP 18; TEMP 37; O2SAT 97; BMI 28.3
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
[2024-04-16 14:57] VITALS: BP 107/62; PULSE 84; RESP 16; TEMP 37.1; O2SAT 99
[2024-04-16 15:19] LABS: Appearance Urine Clear; Color Urine Yellow; Glucose Urine UA Negative (Negative); Leukocyte Esterase Urine Negative (Negative); Nitrite Urine Negative (Negative); Specific Gravity - Urine 1.025 (1.005-1.025); UMIC TRIGGER UACC YES; Urine Blood Trace (Negative); Urine Ketones Trace mg/dL (Negative); Urine Protein Negative (Neg-Trace)
[2024-04-16 15:20] LABS: UPreg QC Valid YES; Urine Pregnancy NEGATIVE (NEGATIVE)
[2024-04-16 15:24] LABS: Bacteria Urine None Seen (None Seen); Hyaline Casts Urine 0-2 /LPF (0-2); Squamous Epithelial Cell Urine 0-2 /HPF (0-2); WBC Urine 0-5 /HPF (0-5)
[2024-04-16] MEDS: iohexoL 350 MG/ML 100 ML INFUS..BTL IV (15:54)
[2024-04-16] MEDS: HYDROcodone Bit/Acetam 5/325 TABLET 1 TAB PO (17:39)
[2024-04-16 17:53] VITALS: BP 111/59; PULSE 88; RESP 18; TEMP 36.8; O2SAT 98
--- NOTE | 2024-04-16 18:26 | PC.NURSE ---
Report given to Gisell CHENG at [facility] for transfer
[2024-04-16 20:01] VITALS: BP 104/61; PULSE 93; RESP 16; TEMP 37.3; O2SAT 98
[2024-04-16 20:14] VITALS: BP 104/61; PULSE 93; RESP 16; TEMP 37.3; O2SAT 98
== END 2024-04-16 20:16 | disposition short-term general hospital (02) ==
PROVIDERS: Registered Nurse Emergency; Emergency Provider Emergency Medicine; PCP Internal Medicine
DX: S92.512A Displaced fracture of proximal phalanx of left lesser toe(s), initial encounter for closed fracture (principal); S32.059A Unspecified fracture of fifth lumbar vertebra, initial encounter for closed fracture; S36.112A Contusion of liver, initial encounter; R07.89 Other chest pain; R10.2 Pelvic and perineal pain; M79.672 Pain in left foot; V43.52XA Car driver injured in collision with other type car in traffic accident, initial encounter; Y93.9 Activity, unspecified; Y92.410 Unspecified street and highway as the place of occurrence of the external cause; Y99.8 Other external cause status
CPT/HCPCS: 71260; 73630; 74177; 81001; 81025; 99285; Q9967

== ENCOUNTER 2024-06-04 14:56 | Outpatient (REF) | payer OTHER, SELFPAY | END 2024-06-04 14:57 | disposition home or self-care (01) | LOC: HO.LAB 14:56 | PROVIDERS: Visit Provider Student in an Organized Health Care Education/Training Program | DX: Z13.89 Encounter for screening for other disorder (principal) ==

== ENCOUNTER → 2024-06-05 11:13 | Outpatient (BNVA) | payer OTHER, SELFPAY | PROVIDERS: PCP Internal Medicine; Visit Provider Registered Nurse | DX: Z13.89 Encounter for screening for other disorder (principal) | CPT/HCPCS: 73630 ==

== ENCOUNTER 2024-06-05 14:51 | Outpatient (AMB) | payer OTHER, SELFPAY ==
[2024-06-05 14:53] VITALS: BP 102/78; PULSE 80; BMI 28.3
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
== END 2024-06-05 15:17 | disposition home or self-care (01) ==
PROVIDERS: PCP Internal Medicine; Visit Provider Student in an Organized Health Care Education/Training Program
DX: E06.3 Autoimmune thyroiditis (principal)
CPT/HCPCS: 99213

== ENCOUNTER 2024-08-14 15:00 | Outpatient (RCR) | payer OTHER, SELFPAY ==
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
== END 2024-08-14 16:13 | disposition home or self-care (01) ==
LOC: HO.PT 15:00
PROVIDERS: PCP Internal Medicine; Visit Provider Registered Nurse
DX: M54.2 Cervicalgia (principal); S39.012D Strain of muscle, fascia and tendon of lower back, subsequent encounter; V89.2XXD Person injured in unspecified motor-vehicle accident, traffic, subsequent encounter; M79.671 Pain in right foot
CPT/HCPCS: 97110; 97112; 97140; 97161; 97530

== ENCOUNTER 2024-10-25 14:23 | Outpatient (AMB) | payer OTHER, SELFPAY ==
--- NOTE | 2024-10-25 14:30 | A.OFFVIS_ITS ---
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 Menses recently restarted after d/c breast feeding in September. Interested in the Patch, history of CDHI mutation and gastrectomy. Is followed by Dr. Yip for breast surveillance with MRIs and mammograms yearly. Currently is sexually active, using condoms. She denies vaginal itching and irritation. STI screening offered; she declines. She denies any family history of breast cancer. Last pap smear 2022, negative. 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 History of shingles (~06/2022) History of hypothyroidism Surgical History History of tonsillectomy (~2009) History of wisdom tooth extraction (~2010) History of cystoscopy (~2014) History of endoscopy (~2019) History of gastrectomy (~2020) History of left breast biopsy (~2021) History of colonoscopy (~2021) Family History Father Sleep apnea Hypercholesteremia HTN (hypertension) Monoallelic mutation of CDH1 gene Mother Migraine Hypercholesteremia COPD (chronic obstructive pulmonary disease) HTN (hypertension) Maternal Grandfather CVD (cardiovascular disease) Heart attack HTN (hypertension) Maternal Grandmother Bladder cancer CVD (cardiovascular disease) Heart attack Emphysema lung HTN (hypertension) Paternal Grandmother Osteoporosis CHF (congestive heart failure) Heart attack COPD (chronic obstructive pulmonary disease) Paternal Grandfather Lung metastasis Diabetes mellitus CHF (congestive heart failure) Heart attack Metastatic cancer to liver Maternal Aunt Diabetes mellitus Bladder cancer Paternal Aunt Stomach cancer Paternal Aunt Stomach cancer Social History (Reviewed 10/25/24 @ 14:34 by Patricia Babin [facility]) Household Members: Spouse, Significant Other and Children Housing: House Are you a primary primary care pediatrician to a significant other at home: No Alcohol intake: never Patient Tobacco Use Status: Never used Tobacco Second Hand Smoke Exposure: No service: No Current occupational status: employed Current occupational exposures/hazards: No Gender identity: Female Female Reproductive History Menstrual Age of Menarche: 12 Duration of menses: 3-5 days Date of last menstrual period: 09/28/24 control method: none Total pregnancies: 2 Full term: 2 Number of Living Children: 2 Date of last pap smear: 10/21/22 (neg pap and hpv) Review of Systems Const All systems reviewed & are unremarkable except as noted in HPI and below Reports as per HPI Eyes Reports no additional complaints ENT Reports no additional complaints Card Reports no additional complaints Resp Reports no additional complaints GI Reports as per HPI and Reports no additional complaints Reports as per HPI Musc Reports no additional complaints Skin/Breast Reports as per HPI Neuro Reports no additional complaints Psych Reports no additional complaints Endo Reports no additional complaints Samir/Lymph Reports no additional complaints Aller/Immun Reports no additional complaints Physical Exam Vital Signs: Last Vital Signs BP 106/70 10/25/24 14:31 BMI result Body Mass Index 29.3 Const General: cooperative, healthy appearing, no acute distress, well developed and alert Orientation/consciousness: patient oriented x3 HEENT Head: Yes normal to inspection Eyes General: appearance normal, both eyes and all related structures Neck Neck: Yes normal visual inspection Thyroid: Thyroid normal Chest Chest palpation & inspection: normal inspection of the chest and other (no puckering, dimpling, peau de orange, retraction, discharge, masses) Breast/axilla inspection: normal inspection of the breasts Breast/axilla palpation: normal palpation of the breasts Resp Effort & Inspection: normal respiratory effort GI Inspection: Yes normal to inspection and Yes scar Palpation (GI): Soft to palpation Rectal Exam - Female: deferred General: Yes bladder normal to palpation External Female Exam: normal external appearance and normal appearance of the urethra Speculum Exam - Vagina: normal appearance of the vagina, normal palpation and normal vaginal discharge Speculum Exam - Cervix: normal appearance of the cervix and normal palpation Bimanual exam- vagina & uterus: normal bimanual exam, normal palpation, uterine size normal, bladder normal to palpation, normal palpation and non-tender Bimanual Exam- Adnexa, other: no masses Skin General skin exam: no rashes or lesions noted Rashes: no rashes Neuro General: patient oriented x3 Cognition (Neuro): normal cognition Extrem General: Yes normal to inspection Psych Attitude: cooperative Thought process: Normal thought process present Assessment & Plan Assessment & Plan (1) Encounter for well woman exam with routine gynecological exam: Code(s): Z01.419 - Encounter for gynecological examination (general) (routine) without abnormal findings Category: Medical Plan Discussed: Current recommendations for pap smears per ASCCP guidelines. Breast awareness and periodic breast exams. Maintain a healthy lifestyle including a well balanced diet and routine exercise. Use condoms for prevention. Nonhormonal methods including barrier and ParaGard IUD, she may consider the ParaGard. Advised to discuss this concern with Dr. Yip due to the high risk of breast cancer concerns. Patient verbalizes understanding and agrees to the plan of care. She was given opportunity to ask questions and all questions were answered to the best of my ability. 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 This note is constructed using voice recognition software. While every effort has been made to ensure accuracy, commissary assistant errors may have been included. Coding Level of Care Code Est Pt Prev Care 18-39y(03504) Diagnoses Encounter for well woman exam with routine gynecological exam Z01.419
[2024-10-25 14:31] VITALS: BP 106/70; BMI 29.3
--- OUTSIDE RECORDS SUMMARY | 2024-10-25 16:35 | XMS_ITS | Patient Health Record ---
Author Organization [facility] Address [address] [place] [id number] Care Team Providers Care Theatrical Rigger Name Role Phone Anthony Antunez MD Primary Care Provider Jairo Dhillon Jr Unavailable ALLERGIES Allergen (clinical drug ingredient) Drug/Non Drug Allergy documented on EMR Reaction Allergy Type Onset Date Status amoxicillin Amoxicillin Unknown Drug Allergy Act mookie REASON FOR REFERRAL No Information MEDICATIONS Medication SIG (Take, Route, Frequency, Duration) Notes Start Date End Date Status Bariatric Multivitamins/Iron - as directed Orally Active Levothyroxine Sodium 50 MCG 1 capsule Or ally Once a day Active Calcium Citrate 150 MG 2 capsules Orally Once a day for 30 day(s) Active MiraLax (colon prep) 17 GM/SCOOP mixed with Gatorade or Crystal Light Orally begin at 5:00 p.m. the day before the procedure for 1 day 01/04/2022 Active IMMUNIZATIONS Vaccine Route Administration Date Status Comme nts Influenza Unknown 07/17/2020 Administered Influenza Unknown 08/05/2021 Administered SOCIAL HISTORY Tobacco Use: Social History Observation Description Date Details (start date - stop date) Never Smoker NA - NA Sex Assigned At : Social History Observation Description Sex Assigned At Unknown Tobacco Use/Smoking Question Answer Notes Patient is a nonsmoker Alcohol Screen Question Answer Notes Did you have a drink containing alcohol in the p ast year? 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 063880905 Problem Colon cancer screening (Z12.11) Active confirmed 694792026 Problem Elevated liver function tests (R79.89) Active confirmed 007015094 PLAN OF TREATMENT Future Test Test Name Order Date UPPER GI ENDOSCOPY 07/07/2018 UPPER GI ENDOSCOPY 09/25/2020 COLONOSCOPY 01/04/2022 Insurance Providers Payer Name Payer Address Payer Phone Subscriber Number Group Number Insured Name Patient Relationship to Insured Coverage Start Date Coverage End Date [employer] [address] [address] [place] [address] [id number] February, SCOO[place] Self - patient is the insured MEDICAL (GENERAL) HISTORY Medical History History ICD Code Hereditary diffuse gastric c ancer syndrome, adenocarcinoma identified at EGD 10/05 hypothyroidism Surgical History Surgery Date(Month/Year) ingrown toenail surgery x 2 tonsillectomy 2009 wisdom teeth extraction gastrectomy total 2020
== END 2024-10-25 14:57 | disposition home or self-care (01) ==
PROVIDERS: Visit Provider Advanced Practice Midwife
DX: Z01.419 Encounter for gynecological examination (general) (routine) without abnormal findings (principal)
CPT/HCPCS: 99395; 99459

== ENCOUNTER → 2024-10-25 14:23 | Outpatient (BNVA) | payer OTHER, SELFPAY | PROVIDERS: Visit Provider Advanced Practice Midwife ==

== ENCOUNTER 2025-01-14 07:50 | Outpatient (AMB) | payer OTHER, SELFPAY ==
--- NOTE | 2025-01-14 07:55 | MHC.PC.OV ---
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 Requesting a PE Intake Note: patient here for new patient visit. Field Agent Required: No Is last menstrual period known: Yes Last menstrual period: 12/24/24 Post menopausal: No Patient : No Allergies amoxicillin [AMOXICILLIN] Allergy (Unknown, Verified 01/14/25 08:07) HIVES, Rash NSAIDS (Non-Steroidal Anti-Inflamma Allergy (Verified 01/14/25 08:07) Unknown Medication List - Last Reconciled 01/14/25 by Eriberto Encinas CNP calcium citrate 500 mg PO TID multivitamin 1 tab PO DAILY Tobacco use date assessed: 01/14/25 Dental Screening Dental Screen Date: 01/14/25 Did you have a dental visit in the last 12 months?: Yes Did you have a dental problem in the last 6 months where you did not have access to dental care?: No Was dental information given to patient?: Patient has dentist HPI HPI Comments History of Present Illness Details 34-year-old female presents to [facility] care. She is on calcium citrate 500 mg 3 times daily and multivitamin daily. She requests dermatology referral for skin cancer screening due to personal and family history of cancer. She denies rash or lesions. Prior PCP? - Dr Antunez, [facility] [place] Last office visit/CPE - 11/2020 Last labs - 12/13/2024 Acute issue(s) - None Past Medical History - Gastric cancer, hypothyroidism (not currently on meds), shingles, monoallelic mutation of CDH1 gene Surgical History - Total gastrectomy, tonsillectomy Family History - Dad: Hypertension, hypercholesterolemia, monoallelic mutation of CDH1 gene, sleep apnea - Mom: COPD, hypertension, hypercholesterolemia, migraine - MGF: Cardiovascular disease, hypertension, heart attack, CLL - MGM: Bladder cancer, cardiovascular disease, emphysema, hypertension, heart attack - PGM: CHF, COPD, heart attack, osteoporosis - PGF: CHF, diabetes, heart attack, lung metastasis, metastatic cancer of liver Social History - Nonsmoker. Does not vape. Drinks 1 glass of wine monthly. Denies recreational drug use - Has been making healthy dietary choices. Walks regularly. Generally sleep well Health maintenance - Last eye exam was a year ago with Laura Dubois. She will schedule a follow up appointment for eye exam. Advised to sign a release for her PCP to obtain a ophthalmology record - Last dental visit was 5 months ago. She has a dental appointment next month - Last Tdap was in 07/2023 - She notes that she is up-to-date on the flu vaccine - Last pap smear test was in 10/2022: Negative - Last mammogram was in 12/10/2021: Negative. Followed by hematology/oncology - Last colonoscopy was in ; normal. Next colonoscopy recommended in 5 years Specialists [facility] [place] hematology/oncology [facility] [place] gastroenterology [facility] Medical History Gastric cancer (~09/2020) Monoallelic mutation of CDH1 gene History of shingles (~06/2022) History of hypothyroidism Surgical History History of tonsillectomy (~2009) History of wisdom tooth extraction (~2010) History of cystoscopy (~2014) History of endoscopy (~2019) History of gastrectomy (~2020) History of left breast biopsy (~2021) History of colonoscopy (~2021) Family History Father Sleep apnea Hypercholesteremia Monoallelic mutation of CDH1 gene HTN (hypertension) Mother Migraine Hypercholesteremia COPD (chronic obstructive pulmonary disease) HTN (hypertension) Maternal Grandfather CVD (cardiovascular disease) Heart attack HTN (hypertension) Maternal Grandmother Bladder cancer CVD (cardiovascular disease) Heart attack Emphysema lung HTN (hypertension) Paternal Grandmother Osteoporosis CHF (congestive heart failure) Heart attack COPD (chronic obstructive pulmonary disease) Paternal Grandfather Lung metastasis Diabetes mellitus CHF (congestive heart failure) Heart attack Metastatic cancer to liver Maternal Aunt Diabetes mellitus Bladder cancer Paternal Aunt Stomach cancer Paternal Aunt Stomach cancer Maternal Grandfather CLL (chronic lymphocytic leukemia) Social History Household Members: Spouse, Significant Other and Children Housing: House Are you a primary critical care paramedic to a significant other at home: No Alcohol intake: never Patient Tobacco Use Status: Never used Tobacco e-Cigarette/Vaping Use: Never Used Second Hand Smoke Exposure: No service: No Current occupational status: employed Current occupational exposures/hazards: No Gender identity: Female Cognitive needs: No Hearing needs: No Vision needs: No Female Reproductive History Menstrual Age of Menarche: 12 Date of last menstrual period: 12/24/24 Questionnaire PHQ-9 Over the last 2 weeks, how often have you been bothered by any of the following problems? 1. Little interest or pleasure in doing things: not at all 2. Feeling down, depressed, or hopeless: not at all 3. Trouble falling or staying asleep, or sleeping too much: not at all 4. Feeling tired or having little energy: several days 5. Poor appetite or overeating: not at all 6. Feeling bad about yourself - or that you are a failure or have let yourself or your family down: not at all 7. Trouble concentrating on things, such as reading the newspaper or watching television: not at all 8. Moving or speaking so slowly that other people could have noticed. Or the opposite - being so fidgety or restless that you have been moving around a lot more than usual: not at all 9. Thoughts that you would be better off or of hurting yourself in some way: not at all Total score: 1 Depression Screening Interpretation: Negative Depression Screening Done: Yes 78803 - PHQ-9 Billing: Yes Source: Developed by Drs. Luca Romero, Lynn Glass, Sebastian Garcia and colleagues, with an educational km from [employer]. Thrive Questionnaire Date Thrive assessed: 01/14/25 I am a: Patient What is your living situation today?: I have a steady place to live Within the past 12 months, did the food you bought not last and you didn't have the money to get more?: Never true Within the past 12 months, did you worry whether your food would run out before you got money to buy more?: Never true Do you have trouble paying for medicines?: No Do you have trouble getting transportation to medical appointments?: No Do you have trouble paying your heating and electricity bill?: No Do you have trouble taking care of your child, family member or friend?: No Do you have trouble with day-to-day activities such as bathing, preparing meals, shopping, managing finances, etc.?: No Are you currently unemployed and looking for a job?: No Are you interested in more education?: No Please select the resources that you would like help with: None Currently or been in a relationship where the following occur: No concerns reported THRIVE Score: 0 AUDIT C Alcohol Use Questionnaire (AUDIT-C) 1. How often do you have a drink containing alcohol?: Monthly or less 2. How many drinks containing alcohol do you have on a typical day when you are drinking?: 1 or 2 3. How often do you have six or more drinks on one occasion?: Never Total Score: 1 Score Reviewed/Action Taken: Yes ROBYN-7 AMB Questionnaire ROBYN-7 Date ROBYN - 7 assessed: 01/14/25 Feeling nervous, anxious, or on edge: 0 = Not at all Not being able to stop or control worryin = Not at all Worrying too much about different things: 0 = Not at all Trouble relaxin = Not at all Being so restless that it is hard to sit still: 0 = Not at all Becoming easily annoyed or irritable: 1 = Several days Feeling afraid as if something awful might happen: 0 = Not at all Total ROBYN-7 score (0-4 normal; 5-9 mild; 10-14 moderate; 15-21 severe): 1 Source: Developed by Drs. Luca Romero, Lynn Glass, Sebastian Garcia and colleagues, with an educational km from [employer]. ROBYN-7 Assessment Billing ROBYN-7 Assessment Tool: ROBYN-7 Assessment 02532 Review of Systems Const Details: Denies chills, Denies fatigue, Denies fever(s), Denies headache(s) and Denies weakness HEENT Denies change in vision, Denies dizziness, Denies headache(s), Denies hearing loss, Denies nasal congestion, Denies sinus pain, Denies sinus pressure and Denies sore throat Card Denies chest pain, Denies lightheadedness, Denies dyspnea and Denies other (palpitations) Resp Denies cough, Denies dyspnea and Denies wheezing GI Denies abdominal pain, Denies melena, Denies hematochezia, Denies change in bowel habits, Denies dyspepsia and Denies nausea Denies hematuria and Denies dysuria Musc Denies abnormal gait, Denies myalgias, Denies arthralgias, Denies numbness and Denies tingling Skin/Breast Denies rash, Denies unusual bruising and Denies wounds Neuro Denies abnormal gait, Denies dizziness, Denies headache(s), Denies memory loss, Denies numbness, Denies Sensory deficit (Neuro), Denies tingling and Denies weakness Psych Denies anxiety, Denies depression and Denies memory loss Endo Denies cold intolerance, Denies fatigue, Denies heat intolerance, Denies polydipsia and Denies polyuria Samir/Lymph Denies easy bleeding and Denies easy bruising Aller/Immun Denies wheezing Physical exam (Primary Care) Vital Signs: Last Vital Signs Temp 98.1 F 01/14/25 08:03 Pulse 96 01/14/25 08:37 Resp 16 01/14/25 08:03 BP 128/79 01/14/25 08:03 Pulse Ox 100 01/14/25 08:03 Oxygen Delivery Method Room Air 01/14/25 08:03 BMI result Body Mass Index 27.4 Tobacco/Smoking Status: Tobacco use Status Tobacco use date assessed 01/14/25 01/14/25 08:01 Patient Tobacco Use Status Never used Tobacco 01/14/25 07:58 e-Cigarette/Vaping Use Never Used 01/14/25 08:01 PHQ-9: PHQ-9 Score PHQ-9: Total score 1 01/14/25 08:12 Depression Screening Interpretation: Negative Thrive Assessment: Date of Thrive Assessment Date Thrive assessed 01/14/25 01/14/25 07:58 Currently or been in a relationship where the following occur: No concerns reported Const Other: General: no acute distress, well developed, alert and awake Nutritional Appearance: well nourished Orientation/consciousness: patient oriented x3 HENMT Head: Yes normocephalic and Yes atraumatic Ears: hearing grossly normal bilaterally and TM's normal bilaterally General nose exam: Normal external nose present and Normal nares present Mouth: Normal oral and palatal mucosa present and moist mucous membranes Teeth and gingiva: dentition normal Throat: Yes oropharynx normal Eyes Pupils: Equal, round and reactive pupils present and Pupil accommodation reflex normal EOM: EOMs intact bilaterally Neck Neck: Yes normal visual inspection, Yes no lymphadenopathy and Yes trachea midline Thyroid: Thyroid normal Carotids: no bruits Lymphatic: no lymphadenopathy noted Chest Chest palpation & inspection: normal inspection of the chest Resp Effort & Inspection: normal respiratory effort Auscultation: clear to auscultation bilaterally Cardio Rate: regular rate Rhythm: regular rhythm Heart sounds: S1 normal heart sound present, S2 normal heart sound present, no gallops, no murmurs and no rubs Bruits: no abdominal aortic bruits and no carotid bruits GI Palpation (GI): No Abdominal aortic bruit present, Soft to palpation, nontender, No hepatosplenomegaly present and No Rebound tenderness present Auscultation: normal bowel sounds General: Yes no CVA tenderness Back/Spine/Pelvis Back: no CVA tenderness Cervical Spine: cervical ROM normal and No Cervical spine tenderness Thoracic/Lumbar Spine: thoraco-lumbar ROM normal, No pain with thoraco-lumbar ROM, No thoracic spinal tenderness and No lumbar spinal tenderness Skin General: warm and dry. Normal skin color. Normal skin turgor Lesions: no lesions Rashes: no rashes Trauma: no lacerations or abrasions Wounds: no wounds Nails: normal Neuro General: patient oriented x3, gait normal and CN's II-XI intact bilaterally Cranial nerves: Yes Equal, round and reactive pupils present Cognition (Neuro): normal cognition Gait exam (Neuro): Normal gait present Motor exam (neuro): 5/5 motor strength present throughout Sensory Exam: No Sensory deficit (Neuro) Deep tendon reflexes (DTR's): Right patellar reflex intensity grade: 2+ and Left patellar reflex intensity grade: 2+ Extrem General: Yes normal to inspection, No edema and No calf tenderness Psych Appearance: grossly normal Affect: normal affect Attitude: cooperative Thought process: Normal thought process present Coding Level of Care Code New Pt Prev Care 18-39yr(19215 Diagnoses Normal physical examination, routine Z00.00 Skin cancer screening Z12.83 Laboratory tests ordered as part of a complete physical exam (CPE) Z00.00 Additional Codes ROBYN-7 Assessment Billing - ROBYN-7 Assessment Tool: ROBYN-7 Assessment 07285 ([id number]) PHQ-9 - 77370 - PHQ-9 Billing: Yes ([id number]) Assessment & Plan Assessment & Plan (1) Normal physical examination, routine: Code(s): Z00.00 - Encounter for general adult medical examination without abnormal findings Category: Medical Plan: No significant functional limitation noted. Healthy diet and routine exercise encouraged. Perform lab work and follow-up for telehealth visit in 2-3 weeks. Return sooner with symptoms or concerns. Verbalized understanding and agreed with treatment plan. (2) Skin cancer screening: Code(s): Z12.83 - Encounter for screening for malignant neoplasm of skin Category: Medical Plan: Referred to dermatology. (3) Laboratory tests ordered as part of a complete physical exam (CPE): Code(s): Z00.00 - Encounter for general adult medical examination without abnormal findings Category: Medical Plan: Fasting labs ordered as part of a complete physical exam. Advised to fast for at least 10 hours before getting labs drawn. May drink water Verbalized understanding and agreed with treatment plan. Orders: Orders Lipid Panel Today Z00.00 - Encounter for general adult medical examination without abnormal findings Vitamin D 25-OH Total Today Z00.00 - Encounter for general adult medical examination without abnormal findings Microalbumin, Random (w Creat) Today Z00.00 - Encounter for general adult medical examination without abnormal findings UA CC w/rflx Micro + Cult Today Z00.00 - Encounter for general adult medical examination without abnormal findings Referrals Dermatology Referral Z12.83 - Encounter for screening for malignant neoplasm of skin
[2025-01-14 08:03] VITALS: BP 128/79; PULSE 105; RESP 16; TEMP 36.7; O2SAT 100; BMI 27.4
[2025-01-14 08:37] VITALS: PULSE 96
== END 2025-01-14 08:33 | disposition home or self-care (01) ==
LOC: HO.HMCFM 07:51
PROVIDERS: PCP Internal Medicine; Visit Provider Nurse Practitioner Family
DX: Z00.00 Encounter for general adult medical examination without abnormal findings (principal); Z12.83 Encounter for screening for malignant neoplasm of skin

== ENCOUNTER → 2025-01-14 07:50 | Outpatient (BNVA) | payer OTHER, SELFPAY | PROVIDERS: PCP Internal Medicine; Visit Provider Nurse Practitioner Family | DX: Z00.00 Encounter for general adult medical examination without abnormal findings (principal) | CPT/HCPCS: 96127 ==

== ENCOUNTER 2025-01-24 07:32 | Outpatient (REF) | payer OTHER, SELFPAY ==
--- OUTSIDE RECORDS SUMMARY | 2025-01-24 07:35 | XMS_ITS | Clinical Summary ---
Author Organization [facility] Address [address] [place] [address] Care Team Providers Care Technician Telecommunication Systems Name Role Phone Unavailable Primary Care Provider Unavailabl e Social History Tobacco Use Types Packs/Day Years Used Date Smoking Tobacco: Never Assessed Comments Unknown Sex and Gender Information Value Date Recorded Sex Assigned at Not on file Legal Sex Female 11:49 PM EST Gender Identity Not on file Sexual Orientation Not on file Obstetrics History Plan of Treatment Health Maintenance Due Date Last Done Comments DTaP,Tdap,and Td Vaccines (1 - Tdap) 2010 Hepatitis B Vaccines (1 of 3 - 19+ 3-dose series) 2010 Cervical Cancer Screening: P ap Smear 2012 COVID-19 Vaccine ( - 2023-2 5 season) 2024 Influenza Vaccine (Season Ended) 2025 HIB Vaccines Aged Out No longer eligi ble based on patient's age to complete this topic HPV Vaccines Aged Out No longer eligi ble based on patient's age to complete this topic Hepatitis A Vaccines Aged Out No long er eligible based on patient's age to complete this topic IPV Vaccines Aged Out No longer eligi ble based on patient's age to complete this topic MMR Vaccines Aged Out No longer eligi ble based on patient's age to complete this topic Meningococcal ACWY Vaccine Aged Out N o longer eligible based on patient's age to complete this topic Meningococcal B Vaccine Aged Out No l onger eligible based on patient's age to complete this topic Pneumococcal Vaccine: Pediat rics (0 to 5 Years) and At-Risk Patients (6 to 64 Years) Aged Out No longer eligible b ased on patient's age to complete this topic RSV Immunization Patients Un kimberly 20 months Aged Out No longer eligible b ased on patient's age to complete this topic Varicella Vaccines Aged Out No longer eligible based on patient's age to complete this topic
--- OUTSIDE RECORDS SUMMARY | 2025-01-24 07:35 | XMS_ITS | Patient Health Record ---
Author Organization [facility] Address [address] [place] [id number] Care Team Providers Care Earth Moving Technician Name Role Phone Anthony Antunez MD Primary Care Provider Jairo Dhillon Jr Unavailable Allergies Allergen (clinical drug ingredient) Drug/Non Drug Allergy documented on EMR Reaction Allergy Type Onset Date Status amoxicillin Amoxicillin Unknown Drug Allergy Act mookie Reason For Referral No Information Medications Medication SIG (Take, Route, Frequency, Duration) Notes [...] the procedure for 1 day 01/04/2022 Active Immunizations Vaccine Route Administration Date Status Comme nts Influenza Unknown 07/17/2020 Administered Influenza Unknown 08/05/2021 Administered Social History Tobacco Use: Social History Observation Description Date Details (start date - stop date) Never Smoker NA - NA Tobacco Use/Smoking Question Answer Notes Patient is a nonsmoker Alcohol Screen Question Answer Notes Did you have a drink containing alcohol in the p ast year? 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 Plan Of Treatment Future Test Test Name Order Date UPPER GI ENDOSCOPY 07/07/2018 UPPER GI ENDOSCOPY 09/25/2020 COLONOSCOPY 01/04/2022 Insurance Providers Payer Name Payer Address Payer Phone Subscriber Number Group Number Insured Name Patient Relationship to Insured Coverage Start Date Coverage End Date [employer] [address] [address] [place] [address] [id number] February, SCOOBY Self - patient is the insured Medical (General) History Medical History History ICD Code Hereditary diffuse gastric c ancer syndrome, adenocarcinoma identified at EGD 10/05 hypothyroidism Surgical History Surgery Date(Month/Year) ingrown toenail surgery x 2 tonsillectomy 2010 wisdom teeth extraction gastrectomy total 2020
[2025-01-24 08:24] LABS: Cholesterol 129 mg/dL (<200); HDL Cholesterol 40 mg/dL (>40); LDL Cholesterol Calculated 70 mg/dL (<100); Triglycerides 97 mg/dL (<150)
[2025-01-24 08:24] LABS: Appearance Urine Clear; Color Urine Yellow; Glucose Urine UA Negative (Negative); Leukocyte Esterase Urine Negative (Negative); Nitrite Urine Negative (Negative); PH 6.5 (5.0-9.0); UMIC TRIGGER UACC YES; Urine Blood Small (1+) (Negative); Urine Ketones Negative (Negative); Urine Protein Negative (Neg-Trace)
[2025-01-24 08:27] LABS: Bacteria Urine None Seen (None Seen); Hyaline Casts Urine 0-2 /LPF (0-2); Squamous Epithelial Cell Urine 0-2 /HPF (0-2); WBC Urine 0-5 /HPF (0-5)
[2025-01-24 08:40] LABS: Vitamin D 25-OH Total 31.4 ng/mL (>30)
[2025-01-24 09:12] LABS: Creatinine Urine 42.08 mg/dL; Microalbumin Urine < 5.0 mg/L
== END 2025-01-24 07:33 | disposition home or self-care (01) ==
LOC: HO.LAB 07:32
PROVIDERS: PCP Nurse Practitioner Family; Visit Provider Nurse Practitioner Family
DX: Z00.00 Encounter for general adult medical examination without abnormal findings (principal); Z13.6 Encounter for screening for cardiovascular disorders
CPT/HCPCS: 36415; 80061; 81001; 81003; 82043; 82306; 82570

== ENCOUNTER 2025-05-22 19:26 | Emergency (ER) | payer OTHER, SELFPAY ==
--- NOTE | ~2025-05-22 | CT_ITS ---
CLINICAL HISTORY: L flank pain, hematuria CT abdomen and pelvis without contrast Comparison: None provided Findings: No consolidation or effusion. Unremarkable gallbladder and solid organs. Mild left-sided hydronephrosis with mild hydroureter and perinephric fat stranding and a 0.4 cm stone in the distal ureter. No bowel obstruction, pneumoperitoneum, or pneumatosis. Surgical sutures incompletely visualized but possibly status post gastric bypass. Pelvic contents unremarkable. Normal appendix. The bones are intact. IMPRESSION: 0.4 cm stone in the distal left ureter with mild hydroureteronephrosis and perinephric fat stranding. This document has been electronically signed by: Chilo Das MD on 05/22/2025 23:37:33
[2025-05-22 19:32] VITALS: BP 132/80; PULSE 76; RESP 17; TEMP 36.2; O2SAT 99; BMI 28.8
--- NOTE | 2025-05-22 19:37 | ED.GENADULT ---
HPI - General Adult General Chief complaint: General Medical Stated complaint: flank pain, vomitting Time Seen by Provider: 05/22/25 19:34 History of Present Illness ED Provider: Jack Banks MD HPI narrative: [age] female history of gastric cancer status post Franchesca-en-Y with fullness in the suprapubic region and left flank pain about 2 days develop nausea and vomiting about 16:00 this afternoon nonbloody. She typically eats small meals felt maybe she had eaten slightly larger lunch. No upper abdominal pain denies fever. No injuries to the back Related Data Home Medications ?Medication ?Instructions ?Recorded ?Confirmed calcium citrate 500 mg (2,376 mg) 500 mg PO TID 01/06/21 01/14/25 effervescent tablet multivitamin 1 tab PO DAILY 01/06/21 01/14/25 Previous Rx's ?Medication ?Instructions ?Recorded nitrofurantoin macrocrystal 100 mg 100 mg PO BID #10 caps 05/21/25 capsule morphine 15 mg immediate release 15 mg PO Q8H PRN pain #5 tabs 05/22/25 tablet ondansetron 4 mg disintegrating 4 mg PO Q8H PRN nausea and 05/22/25 tablet vomiting #7 tabs sulfamethoxazole 800 1 tab PO Q12H 7 days #14 tabs 05/22/25 mg-trimethoprim 160 mg tablet (Bactrim DS) tamsulosin 0.4 mg capsule (Flomax) 0.4 mg PO DAILY 5 days #5 caps 05/22/25 Allergies Allergy/AdvReac Type Severity Reaction Status Date / Time amoxicillin (AMOXICILLIN) Allergy Unknown HIVES, Rash Verified 05/22/25 19:34 NSAIDS (Non-Steroidal Allergy Unknown Verified 05/22/25 19:34 Anti-Inflamma PMFSH Past Medical History Medical History Gastric cancer (~09/2020) Monoallelic mutation of CDH1 gene History of shingles (~06/2022) History of hypothyroidism Surgical History History of tonsillectomy (~2009) History of wisdom tooth extraction (~2010) History of cystoscopy (~2014) History of endoscopy (~2019) History of gastrectomy (~2020) History of left breast biopsy (~2021) History of colonoscopy (~2021) Family History Family History Father Sleep apnea Hypercholesteremia Monoallelic mutation of CDH1 gene HTN (hypertension) Mother Migraine Hypercholesteremia COPD (chronic obstructive pulmonary disease) HTN (hypertension) Maternal Grandfather CVD (cardiovascular disease) Heart attack HTN (hypertension) Maternal Grandmother Bladder cancer CVD (cardiovascular disease) Heart attack Emphysema lung HTN (hypertension) Paternal Grandmother Osteoporosis CHF (congestive heart failure) Heart attack COPD (chronic obstructive pulmonary disease) Paternal Grandfather Lung metastasis Diabetes mellitus CHF (congestive heart failure) Heart attack Metastatic cancer to liver Maternal Aunt Diabetes mellitus Bladder cancer Paternal Aunt Stomach cancer Paternal Aunt Stomach cancer Maternal Grandfather CLL (chronic lymphocytic leukemia) Social History Social History Household Members: Spouse, Significant Other and Children Housing: House Are you a primary healthcare consulting manager to a significant other at home: No Alcohol intake: never Patient Tobacco Use Status: Never used Tobacco e-Cigarette/Vaping Use: Never Used Second Hand Smoke Exposure: No Use of substances other than those prescribed or required for medical reasons: No Have you been hit, kicked, punched, or otherwise hurt by someone within the past year? If so, by whom?: No Do you feel safe in your current relationship?: Yes [employer] [facility] Practices: Buddhism Do you have thoughts of harming others: None Do you have a plan to hurt others: No Plan Do you have the means to hurt others: No Recently lost weight without trying: No Eating poorly because of decreased appetite: No Nutrition Risks: No Nutritional Risk Patient : No : No Poor oral hygiene: No service: No Current occupational status: employed Current occupational exposures/hazards: No Gender identity: Female Cognitive needs: No Hearing needs: No Vision needs: No Physical Exam ED Exam Exam: EXAM: Gen: Alert, awake, uncomfortable appearing, no distress. Slightly pale looking Head: Atraumatic Eyes: Anicteric, Normal conjunctiva. ENT: Moist mucosa, no pallor. ? Neck: Supple. Skin: ?No observable rash or bruising on exposed or examined skin Respiratory: Breathing comfortably, No distress.Clear to auscultation bilaterally, symmetric chest expansion, No wheeze, rales, ronchi. Cardiovascular: Regular rate and rhythm. No murmurs or rub. Well perfused periphery, warm extremities. No edema. ? Abdominal: No focal tenderness. Soft, no objective distension. No palpable masses or obvious organomegaly. ?No guarding, no rebound tenderness or other peritoneal findings. : Mild left flank tenderness Neuro: Alert. Gross movement of all extremities intact. ? Psych: Calm. Cooperative. MSK: No grossly visible deformity. Vital signs: See flowsheet Vital Signs: Vital Signs - 24 hr 05/22/25 19:32 05/22/25 19:46 05/22/25 22:00 Temperature 97.1 F 97.8 F 97.4 F Pulse Rate 76 82 92 Respiratory Rate 17 16 16 Blood Pressure 132/80 146/79 H 95/54 L Pulse Oximetry 99 98 96 Oxygen Delivery Method Room Air Room Air Room Air 05/22/25 23:33 05/23/25 00:10 Temperature 97.8 F 97.4 F Pulse Rate 83 77 Respiratory Rate 16 Blood Pressure 101/60 98/62 Pulse Oximetry 97 98 Oxygen Delivery Method Room Air Room Air BMI result Body Mass Index 28.8 Medications Administered Discontinued Medications Generic Name Dose Route Start Last Admin Trade Name Freq PRN Reason Stop Dose Admin Hydromorphone HCl 1 mg 05/22/25 19:54 05/22/25 19:59 Hydromorphone Hcl 1 Mg/Ml Syringe IM 05/22/25 19:55 1 mg ONCE ONE Administration Protocol Lactated Ringer's 1,000 mls @ 999 mls/hr 05/22/25 19:31 05/22/25 23:46 Lr IV 05/22/25 20:31 Infused .Q1H1M ONE Infusion Acetaminophen 1,000 mg in 100 mls @ 400 mls/hr 05/22/25 22:48 05/23/25 00:05 Ofirmev IV 05/22/25 23:02 Infused ONCE ONE Infusion Metoclopramide HCl 10 mg 05/22/25 22:48 05/22/25 22:56 Metoclopramide Hcl 10 Mg/2 Ml Vial IVPUSH 05/22/25 22:49 10 mg ONCE ONE Administration Ondansetron HCl 4 mg 05/22/25 19:31 05/22/25 20:03 Ondansetron Hcl 4 Mg/2 Ml Vial IVPUSH 05/22/25 19:32 4 mg ONCE ONE Administration Ondansetron HCl 4 mg 05/22/25 19:34 05/22/25 20:26 Ondansetron Odt 4 Mg Tab.Nathaliadis TRANSLINGU 05/22/25 19:35 Not Given ONCE ONE Trimethoprim/Sulfamethoxazole 1 tab 05/22/25 23:41 05/23/25 00:05 Sulfamethox/Trimeth 800/160 Tablet PO 05/22/25 23:42 1 tab ONCE ONE Administration Procedures Procedure Narrative Procedure Narrative: Ultrasound Guided Peripheral Intravenous Catheter Placement Indication: Intravenous Access Location: Right ??Vascular Location of Catheter Tip: Basilic Provider: Self I was approached by nursing staff and informed that multiple unsuccessful attempts had been made to establish IV access in the patient. The patients arm was surveyed with the ultrasound for verification of vessel collapsibility, patency, depth and caliber, as well as identification of nearby structures. The target area was prepped with chlorhexidine. A tourniquet was placed proximally on the extremity. Under real-time ultrasound guidance, an [20 G 2.25 inch AccuCath nontunneled catheter] ? was advanced into the target vein. Dark blood was visualized in the flash chamber. The catheter was easily advanced into the vein. The catheter was evacuated of air and flushed with sterile saline. The catheter was secured in place with a tegaderm. The patient tolerated the procedure well and there were no complications. Estimated Blood Loss: 1mL Total Time for Procedure: 5min Images Stored CPT: 61552; 36410__ EMERGENCY ULTRASOUND INTERPRETATION-Limited Retroperitoneal (Renal) [This study was ordered, performed, and interpreted by myself. The study reveals: Impression: Mild left hydronephrosis verse hydroureter [Indication: FLANK PAIN Bladder: ANECHOIC URINE Right Kidney: NO HYDRONEPHROSIS Left Kidney: Mild left hydronephrosis verse hydroureter Performed by: Jack Banks MD Images were stored CPT: 66405] Medical Decision Making Medical Decision Making MDM Narrative: Medical Decision Makin-year-old female with a history of gastric cancer status post Franchesca-en-Y remotely with left flank pain no known history of ureteral colic though there is familial kidney stone history in the mother. Denies fever she has mild flank tenderness and appears uncomfortable. Plan for pain control, antiemetic, IV fluid. Point of care ultrasound of the bedside shows perhaps mild hydroureter proximally versus proximal mild hydronephrosis. Bladder with anechoic urine. Urinalysis suggestive mostly of hematuria. Nitrate negative. WBC amount mostly consistent with WBCs present in jeffery blood. CT resulted showing a 4 mm left-sided stone with mild hydronephrosis. Patient and I had a shared decision-making discussion and we agreed to treat her with antibiotics Flomax have her follow up. I will also send few tablets of opioid for severe breakthrough pain. Preliminary Favored Differential Diagnosis: Kidney stone, pyelonephritis, musculoskeletal pain/spasm/thoracic strain/less likely gastrectomy complication among additional considered etiologies Testing Interpreted Independently: See pocus report Radiology or Lab testing Results Reviewed: White count 12.9, normal creatinine and electrolytes, urinalysis with probably hematuria nitrite negative CT shows 4 mm stone left-sided hydro nephrosis Consults: Not Applicable Independent Historians/External Chart Reviews: Not Applicable Social Determinants of Health Impacting MDM/Planning: Not Applicable Lab Data 05/22/25 20:26 05/22/25 20:26 Labs: Lab Results 05/22/25 05/22/25 Range/Units 19:45 20:26 WBC 12.9 H (4.8-10.8) X10*3/uL RBC 4.02 L (4.20-5.50) X10*6/uL Hgb 11.2 L (12.0-16.0) g/dl Hct 34.4 L (37.0-47.0) % MCV 85.6 (80.0-98.0) fL MCH 27.9 (27.0-33.0) pg MCHC 32.6 (31.0-35.0) g/dl RDW 12.6 (11.0-16.0) % Plt Count 186 (160-400) X10*3/uL MPV 9.8 (9.4-12.3) fL Immature Gran % (Auto) 0.5 H (0.0-0.4) % Neut % (Auto) 79.6 H (45-73) % Lymph % (Auto) 14.0 L (20-40) % [place] % (Auto) 5.4 (2-11) % Eos % (Auto) 0.3 (0-4) % Baso % (Auto) 0.2 (0-2) % Lymph # (Auto) 1.8 (1.2-4.9) X10*3/uL [place] # (Auto) 0.7 (0.1-1.2) X10*3/uL Eos # (Auto) 0.0 (0.0-0.4) X10*3/uL Baso # (Auto) 0.0 (0.0-0.2) X10*3/uL Abs Immat Gran (auto) 0.06 H (0.00-0.03) X10*3/uL Absolute Neuts (auto) 10.3 H (2.0-8.3) x10*3/uL Absolute Nucleated RBC 0.000 (0.0-0.012) X10*3/uL Nucleated RBC % (auto) 0.0 (0.0-0.2) /100WBC Sodium 143 (135-145) mmol/L Potassium 3.6 (3.3-5.1) mmol/L Chloride 108 (96-108) mmol/L Carbon Dioxide 26 (22-29) mmol/L Anion Gap 13 (12-20) BUN 15 (9-16) mg/dL Creatinine 0.65 (0.5-1.4) mg/dL Estim Creat Clear Calc 114.0 Estimated GFR > 60 Random Glucose 110 (60-115) mg/dL Calcium 9.0 D (8.4-10.2) mg/dL Magnesium 2.0 (1.6-2.6) mg/dL Total Bilirubin 0.2 (0.0-1.0) mg/dL Direct Bilirubin < 0.2 (0.0-0.5) mg/dL AST 25 (5-31) U/L ALT 16 (0-31) U/L Alkaline Phosphatase 76 (39-117) U/L Total Protein 7.0 (6.5-8.0) g/dL Albumin 4.4 (3.5-5.0) g/dL Lipase 17 (8-78) U/L Beta HCG, Quant < 2 mIU/mL Urine Color Yellow Urine Appearance Clear Urine pH 6.0 (5.0-9.0) Ur Specific [place] 1.020 (1.005-1.025) Urine Protein Negative (Neg-Trace) mg/dL Urine Glucose (UA) Negative (Negative) mg/dL Urine Ketones Negative (Negative) mg/dL Urine Blood Large (3+) H (Negative) Urine Nitrite Negative (Negative) Ur Leukocyte Esterase Small (1+) H (Negative) Urine RBC >20 H (0-2) /HPF Urine WBC 11-20 H (0-5) /HPF Ur Squamous Epith Cells 6-10 (0-2) /HPF Urine Bacteria None Seen (None Seen) Hyaline Casts 0-2 (0-2) /LPF Discharge Plan Discharge Clinical Impression: Ureter colic Patient Disposition: Home, Self-Care Instructions: Renal Colic (ED) Additional Instructions: DISCHARGE DIAGNOSES: Kidney stone left side 4 mm HISTORY OF PRESENTATION: ?Left-sided flank pain and vomiting EMERGENCY DEPARTMENT COURSE,TESTS, TREATMENTS: While in the ED today in the emergency department you had a white blood cell count of 12.9, normal kidney function and chemistry test. Urinalysis showed greater than 20 red blood cells and 11-20 white blood cells negative nitrates. We gave you: Intramuscular Dilaudid 1 mg , 1 L lactated Ringer's, 1 g of acetaminophen IV, 10 mg of metoclopramide IV, ODT Zofran 4 mg and [address] dose of Bactrim oral. CT showed 4 mm stone with left-sided hydronephrosis DISCHARGE MEDICATIONS: ?Flomax, Bactrim, as needed morphine for severe breakthrough pain only, Zofran FOLLOW-UP: ?Call your primary or general physician soon as possible to discuss your symptoms, your ED visit and to discuss follow up plans Call urology for follow up INSTRUCTIONS ?& RETURN PRECAUTIONS: If any symptoms change first call your primary physician, if it is after-hours your primary doctors office should have a provider precision filer hand you can speak with. If the symptoms are severe or very concerning to you then call 911 or return to the ED. Jack Banks MD Emergency Physician [facility] Prescriptions: New ondansetron 4 mg tablet,disintegrating 4 mg PO Q8H PRN (Reason: nausea and vomiting) Qty: 7 0RF sulfamethoxazole-trimethoprim [Bactrim DS] 800-160 mg tablet 1 tab PO Q12H 7 Days Qty: 14 0RF tamsulosin [Flomax] 0.4 mg capsule 0.4 mg PO DAILY 5 Days Qty: 5 0RF morphine 15 mg tablet 15 mg PO Q8H PRN (Reason: pain) Qty: 5 0RF Rx Instructions: Partial Fill upon patient request. No Action multivitamin Tablet 1 tab PO DAILY calcium citrate 500 mg Tablet, Effervescent 500 mg PO TID nitrofurantoin macrocrystal 100 mg capsule 100 mg PO BID Qty: 10 0RF Rx Instructions: must administer with a meal/food Referrals: [facility] [Provider Group, Urology] Interventions: ED Discharge Assessment Last Done: 05/23/25 00:10 Discharge Date/Time: 05/23/25 00:12 Print Language: Tamazight
[2025-05-22 19:46] VITALS: BP 146/79; PULSE 82; RESP 16; TEMP 36.6; O2SAT 98
[2025-05-22 19:56] LABS: Appearance Urine Clear; Glucose Urine UA Negative (Negative); PH 6.0 (5.0-9.0); Specific Gravity - Urine 1.020 (1.005-1.025); UMIC TRIGGER UACC YES
[2025-05-22 20:01] LABS: UACC Culture Trigger YES
[2025-05-22] MEDS: Lactated Ringers 1,000 ML 999 ML IV (20:03)
--- OUTSIDE RECORDS SUMMARY | 2025-05-22 20:08 | XMS_ITS | Clinical Summary ---
Author Organization [facility] Address [address] [place] [address] Phone Care Team Providers Care Lead Burner Apprentice Name Role Phone Anthony Antunez MD Primary Care Provider Allergies Active Allergy Reactions Criticality Noted Date Comments Amoxicillin Rash Low 03/14/2018 Medications norethindrone-et hinyl estrad (PIRMELLA ORAL) Take 1 tablet by mouth daily. Active calcium citrate-vitamin D3 (CITRACAL+D) 950 mg (200 mg elemental)-250 units Tab Take 1 tablet by mouth 2 (two) times a day with meals. Active Active Problems Problem Noted Date Diagnosed Date Genetic predisposition to breast cancer 05/02/20 18 Overview (05/02/2018): CDH1 gene mutation positive. Underwent CDH1 testing 01/01. Monoallelic mutation of CDH1 gene 05/02/2018 Overview (05/02/2018): CDH1 3G>A Social History Tobacco Use Types Packs/Day Years Used Date Smoking Tobacco: Never Smokeless Tobacco: Never Alcohol Use Standard Drinks/Week Comments Yes 1 (1 standard drink = 0.6 oz pur e alcohol) Education Answer Date Recorded Are you interested in more education? Not on indira e 02/11/2023 Are you concerned about learning? Not on file 02/11/2023 No 02/11/2023 No 02/11/2023 Digital Access Answer Date Recorded No 03/14/2023 No 03/14/2023 No 03/14/2023 Reliable internet access at home? Not on file 03/14/2023 Device with a working camera? Not on file Comments Unknown Sex and Gender Information Value Date Recorded Sex Assigned at Not on file Legal Sex Female 9:00 PM EDT Gender Identity Not on file Sexual Orientation Not on file Last Filed Vital Signs Vital Sign Reading Time Taken Comments Blood Pressure 117/81 05/02/2018 8:57 AM EDT Pulse 85 05/02/2018 8:57 AM EDT Temperature 36.6 C (97.8 F) 05/02/2018 8:57 AM EDT Respiratory Rate 16 05/02/2018 8:57 AM EDT Oxygen Saturation 98% 05/02/2018 8:57 AM EDT Inhaled Oxygen Concentration - - Weight 80.3 kg (177 lb) 05/02/2018 8:57 AM EDT Height 159.4 cm (5' 2.75 ) 05/02/2018 8:57 AM ED T Body Mass Index 31.6 05/02/2018 8:57 AM EDT Plan of Treatment Health Maintenance Due Date Last Done Comments DEPRESSION SCREENING 2003 HEPATITIS C SCREENING 2009 HIV ONE-TIME SCREENING (18-6 5 YEARS) 2009 PAP SMEAR 2012 COVID-19 VACCINE (2 2023-2 5 season) 2024 12/12/2020 Adult Td,Tdap Booster 01/31/2030 02/01/2020 , 11/15/2018 SMOKING STATUS SCREENING (On ce After 26 Yrs) Completed 03/16/2018 HEPATITIS A VACCINES Aged Out No long er eligible based on patient's age to complete this topic HIB VACCINES Aged Out No longer eligi ble based on patient's age to complete this topic MENINGOCOCCAL VACCINES (ACWY) Aged Out No longer eligible based on patient's age to complete this topic MENINGOCOCCAL VACCINES (B) Aged Out N o longer eligible based on patient's age to complete this topic PNEUMOCOCCAL VACCINES (0-49 years) Aged Out No longer eligible b ased on patient's age to complete this topic Medical Devices Not on file Insurance [facility] [place] [address] [facility] Care Teams Lead Burner Apprentice Relationship Specialty Start Date End Date Anthony Antunez MD [address] [place] [address] [place] [id number] PCP - General Internal Medicine 02/01/18 Additional Source Comments The information contained in this document represents components of the legal health record. It is not the complete legal health record.[facility]
--- OUTSIDE RECORDS SUMMARY | 2025-05-22 20:09 | XMS_ITS | Patient Health Record ---
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 Plan Of Treatment Future Test Test Name Order Date UPPER GI ENDOSCOPY 07/07/2018 UPPER GI ENDOSCOPY 09/25/2020 COLONOSCOPY 01/04/2022 Insurance Providers Payer Name Payer Address Payer Phone Subscriber Number Group Number Insured Name Patient Relationship to Insured Coverage Start Date Coverage End Date [employer] [address] [address] [place] [address] [id number] February, SCOOBY Self - patient is the insured Medical (General) History Medical History History ICD Code Hereditary diffuse gastric c ancer syndrome, adenocarcinoma identified at EGD 10/05 hypothyroidism Surgical History Surgery Date(Month/Year) ingrown toenail surgery x 2 tonsillectomy 2010 wisdom teeth extraction gastrectomy total 2020
--- NOTE | 2025-05-22 20:26 | PC.NURSE ---
pt medicated per DEC, translingual zofran not given per Dr Lemus.
[2025-05-22 20:30] LABS: MANUAL DIFF FLAG NO
[2025-05-22 20:49] LABS: Hematocrit 34.4 % (37.0-47.0); Hemoglobin 11.2 g/dl (12.0-16.0); Imm Gran Abs Auto 0.06 X10*3/uL (0.00-0.03); Imm Gran Pct Auto 0.5 % (0.0-0.4); Lymphocytes Absolute Auto 1.8 X10*3/uL (1.2-4.9); Mean Corpuscular HGB Conc 32.6 g/dl (31.0-35.0); Mean Corpuscular Hemoglobin 27.9 pg (27.0-33.0); Mean Corpuscular Volume 85.6 fL (80.0-98.0); NRBC Abs Auto 0.000 X10*3/uL (0.0-0.012); NRBC Pct Auto 0.0 /100WBC (0.0-0.2); Platelet Count 186 X10*3/uL (160-400); Red Blood Count 4.02 X10*6/uL (4.20-5.50); White Blood Count 12.9 X10*3/uL (4.8-10.8)
[2025-05-22 20:53] LABS: Alanine Aminotransferase 16 U/L (0-31); Albumin Level 4.4 g/dL (3.5-5.0); Alkaline Phosphatase 76 U/L (39-117); Anion Gap 13 (12-20); Aspartate Amino Transferase 25 U/L (5-31); Blood Urea Nitrogen 15 mg/dL (9-16); Calcium 9.0 mg/dL (8.4-10.2); Carbon Dioxide 26 mmol/L (22-29); Chloride 108 mmol/L (96-108); Creatinine Clr Calc Pharmacy 114.0; Estimated Glomerular Filt Rate > 60; Lipase 17 U/L (8-78); Magnesium 2.0 mg/dL (1.6-2.6); Potassium 3.6 mmol/L (3.3-5.1); Sodium 143 mmol/L (135-145); Total Protein 7.0 g/dL (6.5-8.0)
[2025-05-22 22:00] VITALS: BP 95/54; PULSE 92; RESP 16; TEMP 36.3; O2SAT 96
--- NOTE | 2025-05-22 22:08 | PC.NURSE ---
fluids not yet infused, slow input, pt aware of positioning for best flow of fluids.
[2025-05-22 23:33] VITALS: BP 101/60; PULSE 83; TEMP 36.6; O2SAT 97
[2025-05-23] MEDS: Sulfamethox/Trimeth 800/160 TABLET 1 TAB PO (00:05)
[2025-05-23 00:10] VITALS: BP 98/62; PULSE 77; RESP 16; TEMP 36.3; O2SAT 98
== END 2025-05-23 00:12 | disposition home or self-care (01) ==
PROVIDERS: Emergency Medicine; Emergency Provider Emergency Medicine; PCP Nurse Practitioner Family
DX: N23 Unspecified renal colic (principal); N13.30 Unspecified hydronephrosis; R11.2 Nausea with vomiting, unspecified; R31.9 Hematuria, unspecified; Z98.84 Bariatric surgery status; Z79.899 Other long term (current) drug therapy
CPT/HCPCS: 36410; 36415; 74176; 76775; 76937; 80048; 80076; 81001; 83690; 83735; 84702; 85025; 87086; 96361; 96365; 96372; 96375; 99284; 99285; J0131; J1171; J2405; J2765; J7120

== ENCOUNTER → 2025-05-22 20:14 | Outpatient (BNV) | payer OTHER, SELFPAY | PROVIDERS: Emergency Provider Emergency Medicine; PCP Nurse Practitioner Family; Visit Provider Student in an Organized Health Care Education/Training Program | DX: N13.2 Hydronephrosis with renal and ureteral calculous obstruction (principal) | CPT/HCPCS: 74176 ==

== ENCOUNTER 2025-06-21 08:21 | Outpatient (AMB) | payer OTHER, SELFPAY ==
--- NOTE | 2025-06-21 08:30 | A.OFFVIS_ITS ---
Intake Visit Reasons: kidney stones Intake Note: patient visits today for: new patient kidney stones urology medications: tamsulosin blood thinners: none CT done: 05/22/25 [employer] Instructor Required: No Accompanied by: Self / Same As Patient Allergies amoxicillin (AMOXICILLIN) Allergy (Unknown, Verified 06/21/25 08:32) HIVES, Rash NSAIDS (Non-Steroidal Anti-Inflamma Allergy (Verified 06/21/25 08:32) Unknown HPI Comments Details: Karen is a pleasant female. She is a patient of . 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 Underwent total gastrectomy with Franchesca-en-Y 10/05 Reason presentation to emergency room with distal left ureteric stone Reviewed CT from 2023 which shows upper pole left stone consistent with passage Discussed pathophysiology of oxalate cycling in setting of Franchesca-en-Y Recommend taking calcium citrate tablet half now before main meals lunch and dinner Maintain fluid intake - uses protein water to slightly thickened water PFSH Medical History Gastric cancer (~09/2020) Monoallelic mutation of CDH1 gene History of shingles (~06/2022) History of hypothyroidism Surgical History History of tonsillectomy (~2009) History of wisdom tooth extraction (~2010) History of cystoscopy (~2014) History of endoscopy (~2019) History of gastrectomy (~2020) History of left breast biopsy (~2021) History of colonoscopy (~2021) Family History Father Sleep apnea Hypercholesteremia Monoallelic mutation of CDH1 gene HTN (hypertension) Mother Migraine Hypercholesteremia COPD (chronic obstructive pulmonary disease) HTN (hypertension) Maternal Grandfather CVD (cardiovascular disease) Heart attack HTN (hypertension) Maternal Grandmother Bladder cancer CVD (cardiovascular disease) Heart attack Emphysema lung HTN (hypertension) Paternal Grandmother Osteoporosis CHF (congestive heart failure) Heart attack COPD (chronic obstructive pulmonary disease) Paternal Grandfather Lung metastasis Diabetes mellitus CHF (congestive heart failure) Heart attack Metastatic cancer to liver Maternal Aunt Diabetes mellitus Bladder cancer Paternal Aunt Stomach cancer Paternal Aunt Stomach cancer Maternal Grandfather CLL (chronic lymphocytic leukemia) Social History Household Members: Spouse, Significant Other and Children Housing: House Are you a primary home care music therapist to a significant other at home: No Alcohol intake: never Patient Tobacco Use Status: Never used Tobacco e-Cigarette/Vaping Use: Never Used Second Hand Smoke Exposure: No service: No Current occupational status: employed Current occupational exposures/hazards: No Gender identity: Female Cognitive needs: No Hearing needs: No Vision needs: No Female Reproductive History Menstrual Age of Menarche: 12 Date of last menstrual period: 09/28/24 Review of Systems Const Denies chills and Denies fever(s) Card Reports no additional complaints and Denies syncope Resp Denies cough GI Denies abdominal pain and Denies heartburn Reports as per HPI and Denies change in libido Neuro Denies syncope Psych Denies change in libido Endo Denies change in libido Physical Exam Const General: cooperative, healthy appearing, comfortable and no acute distress Orientation/consciousness: patient oriented x3 HEENT Face and sinus: Yes normal facial exam Mouth: moist mucous membranes Neck Neck: Yes normal visual inspection, Yes full ROM and Yes trachea midline Chest Chest palpation & inspection: normal inspection of the chest Resp Effort & Inspection: normal respiratory effort, able to speak in complete sentences and no respiratory distress GI Inspection: Yes normal to inspection Back/Spine/Pelvis Cervical Spine: normal cervical lordosis Thoracic/Lumbar Spine: thoracic and lumbar spine normal to inspection Skin General skin exam: no rashes or lesions noted Neuro General: patient oriented x3, gait normal, tone normal and moves all extremities Extrem General: Yes normal to inspection and Yes capillary refill normal Results AMB Urinalysis, Automated UA Leukoctes 0 Lorenzo/uL Last Edit by JM Harrell on 06/21/25 08:41 UA Nitrite Negative Last Edit by JM Harrell on 06/21/25 08:41 UA Urobilinogen 0.2 mg/dL Last Edit by JM Harrell on 06/21/25 08:4 1 UA Protein 0 mg/dL Last Edit by JM Harrell on 06/21/25 08:41 UA pH 7.0 Last Edit by JM Harrell on 06/21/25 08:41 UA Blood 10 Roman/uL Last Edit by JM Harrell on 06/21/25 08:41 UA Specific [place] 1.010 Last Edit by JM Harrell on 06/21/25 08: 41 UA Ketone Negative Last Edit by JM Harrell on 06/21/25 08:41 UA Bilirubin 0 mg/dL Last Edit by JM Harrell on 06/21/25 08:41 UA Glucose 0 mg/dL Last Edit by JM Harrell on 06/21/25 08:41 Results Reviewed Results Reviewed: Laboratory Last Values Urine pH (Auto) 7.0 06/21/25 08:40 Specific [place] (Auto) 1.010 06/21/25 08:40 Urine Protein (Auto) 0 mg/dL 06/21/25 08:40 Glucose (UA)(Auto) 0 mg/dL 06/21/25 08:40 Urine Ketones (Auto) Negative 06/21/25 08:40 Urine Blood (Auto) 10 Roman/uL 06/21/25 08:40 Urine Nitrite (Auto) Negative 06/21/25 08:40 Urine Bilirubin (Auto) 0 mg/dL 06/21/25 08:40 Urine Urobilinogen (Auto) 0.2 mg/dL 06/21/25 08:40 Leukocyte Esterase (Auto) 0 Lorenzo/uL 06/21/25 08:40 Assessment & Plan Assessment & Plan (1) Nephrolithiasis: Code(s): N20.0 - Calculus of kidney Category: Medical Plan Six-month follow-up renal ultrasound Orders: Orders AMB Urinalysis Automated Today Z13.9 - Encounter for screening, unspecified US renal BI 6 Months N20.0 - Calculus of kidney Patient Instructions: This note is constructed using voice recognition software. While every effort has been made to ensure accuracy instrument mechanics supervisor errors may have been included. Imaging studies, laboratory and physical exam results were discussed and reviewed in detail. No major barriers to patient understanding were identified. An opportunity to ask questions regarding the treatment plan was provided. All questions were answered. The patient expressed understanding and agreement with the above treatment plan. The patient is aware they should contact our office by phone for worsening of their current condition or the appearance of new urologic symptoms. Compliance is encouraged with any medications and followup testing that is ordered. It is a privilege to participate in the urologic care of your patient. If you have any questions or concerns regarding treatment for the above conditions, or other urologic issues, please do not hesitate to contact me. The office telephone contact is [phone]. Sincerely, Dr Girish Hutchins MD, NATH[facility] - Urology Compassionate Specialist Care for the Genitourinary System Coding Level of Care Code New Pt Level 4 (61719) Diagnoses Nephrolithiasis N20.0
--- OUTSIDE RECORDS SUMMARY | 2025-06-21 08:45 | XMS_ITS | Patient Health Record ---
Author Organization 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 Plan Of Treatment Future Test Test Name Order Date UPPER GI ENDOSCOPY 07/07/2018 UPPER GI ENDOSCOPY 09/25/2020 COLONOSCOPY 01/04/2022 Insurance Providers Payer Name Payer Address Payer Phone Subscriber Number Group Number Insured Name Patient Relationship to Insured Coverage Start Date Coverage End Date [employer] [address] [address] [place] [address] [id number] February, SCOOBY Self - patient is the insured Medical (General) History Medical History History ICD Code Hereditary diffuse gastric c ancer syndrome, adenocarcinoma identified at EGD 10/05 hypothyroidism Surgical History Surgery Date(Month/Year) ingrown toenail surgery x 2 tonsillectomy 2010 wisdom teeth extraction gastrectomy total 2020
--- OUTSIDE RECORDS SUMMARY | 2025-06-21 08:45 | XMS_ITS | Clinical Summary ---
Author Organization [facility] Address [address] [place] [address] Phone Care Team Providers Care Reel Slitter Name Role Phone Anthony Antunez MD Primary [...] (18-6 5 YEARS) 2009 PAP SMEAR 2012 INFLUENZA VACCINE (#1) 2025 , 07/20/2019, 08/01/2018 COVID-19 VACCINE (2 2024-2 6 season) 2025 12/12/2020 Adult Td,Tdap Booster 01/31/2030 02/01/2020 , [...] topic Medical Devices Not on file Insurance [facility] [address] [place] [address] [facility] Care Teams Reel Slitter Relationship Specialty Start Date End Date Anthony Antunez MD [address] [place] [address] [place] [address] PCP - General Internal Medicine 02/01/18 Additional Source Comments The information contained in this document represents components of the legal health record. It is not the complete legal health record.[facility]
--- OUTSIDE RECORDS SUMMARY | 2025-06-21 08:45 | XMS_ITS | Clinical Summary ---
Author Organization [facility] Address [address] [place] [address] Care Team Providers Care Executive Marketing Assistant Name Role Phone Unavailable Primary Care Provider [...] Cervical Cancer Screening: P ap Smear 2012 Depression Screening 10/17/2024 COVID-19 Vaccine ( - 2023-2 5 season) 2025 Influenza Vaccine (#1) 2025 HIB Vaccines Aged Out No longer [...] 5 Years) and At-Risk Patients (6 to 49 Years) Aged Out No longer eligible b ased on patient's age to complete this topic RSV Immunization Patients Un kimberly 20 months Aged Out No longer eligible b ased on patient's age to complete this topic Varicella Vaccines Aged Out No longer eligible based on patient's age to complete this topic
== END 2025-06-21 09:15 | disposition home or self-care (01) ==
LOC: HO.HUSH 08:21
PROVIDERS: PCP Nurse Practitioner Family; Visit Provider Urology
DX: Z13.9 Encounter for screening, unspecified (principal); N20.0 Calculus of kidney
CPT/HCPCS: 99204

== ENCOUNTER → 2025-06-21 08:21 | Outpatient (BNVA) | payer OTHER, SELFPAY | PROVIDERS: PCP Nurse Practitioner Family; Visit Provider Urology | DX: N20.0 Calculus of kidney (principal) | CPT/HCPCS: 81003 ==

== ENCOUNTER 2025-08-15 15:28 | Outpatient (REF) | payer OTHER, SELFPAY ==
--- OUTSIDE RECORDS SUMMARY | 2025-08-15 18:00 | XMS_ITS | Clinical Summary ---
Author Organization [facility] it[facility] Address [address] [place] [address] Care Team Providers Care Director Of Trauma Name Role Phone Unavailable Primary Care Provider [...] Cervical Cancer Screening: P ap Smear 2012 HPV Vaccines (1 - 3-dose SCD M series) 2018 Depression Screening 10/17/2024 COVID-19 Vaccine ( - 2023-2 5 season) 2025 Influenza Vaccine (#1) 2025 RSV Immunization Adult Patie nts (1 - 1-dose 75+ series) 2066 HIB Vaccines Aged Out No longer eligi [...]
--- OUTSIDE RECORDS SUMMARY | 2025-08-15 18:00 | XMS_ITS | Clinical Summary ---
Author Organization [facility] Address [address] [place] [address] Phone Care Team Providers Care Java J2Ee Software Engineer Name Role Phone Anthony Antunez MD Primary [...] topic Medical Devices Not on file Insurance [facility] [address] [facility] Care Teams Java J2Ee Software Engineer Relationship Specialty Start Date End Date Anthony Antunez MD [address] [place] [address] [place] [address] PCP - General Internal Medicine 02/01/18 Additional Source Comments The information contained in this document represents components of the legal health record. It is not the complete legal health record.[facility]
--- OUTSIDE RECORDS SUMMARY | 2025-08-15 18:00 | XMS_ITS | Patient Health Record ---
Author Organization [facility] Address [address] [place] [address] Care Team Providers Care Chemistry Instructor Name Role Phone Tulio (RETIRED) Anthony SINGH Primary Care Provide Jairo Lopez Jr Unavailable [phone] Allergies Allergen (clinical drug ingredient) Drug/Non Drug [...] 150 MG 2 capsules Orally Once a day; Duration: 30 day(s) Active MiraLax (colon prep) 17 GM/SCOOP mixed with Gatorade or Crystal Light Orally begin at 5:00 p.m. 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 [address] [place] [address] [id number] FEBRUARYSCOOBY Self - patient is the insured Medical (General) History Medical History History ICD Code Hereditary diffuse gastric c ancer syndrome, adenocarcinoma identified at EGD 10/05 hypothyroidism Surgical History Surgery Date(Month/Year) ingrown toenail surgery x 2 tonsillectomy 2009 wisdom teeth extraction gastrectomy total 2020
== END 2025-08-15 15:29 | disposition home or self-care (01) ==
LOC: HO.MAMMO 15:28
PROVIDERS: PCP Nurse Practitioner Family; Visit Provider Internal Medicine
DX: Z12.31 Encounter for screening mammogram for malignant neoplasm of breast (principal)
CPT/HCPCS: 77063; 77067

== ENCOUNTER → 2025-08-15 15:30 | Outpatient (BNV) | payer OTHER, SELFPAY | PROVIDERS: PCP Nurse Practitioner Family; Visit Provider Radiology Body Imaging | DX: Z12.31 Encounter for screening mammogram for malignant neoplasm of breast (principal) | CPT/HCPCS: 77063; 77067 ==

== ENCOUNTER 2025-09-24 08:52 | Outpatient (REF) | payer OTHER, SELFPAY ==
--- NOTE | ~2025-09-24 | US_ITS ---
EXAMINATION(S): 1. MM DIAGNOSTIC DIGITAL BREAST TOMOSYNTHESIS, LEFT 2. TARGETED ULTRASOUND OF THE LEFT BREAST CLINICAL INFORMATION: Callback from screening for left breast asymmetry in the upper breast posterior depth on the MLO view, with probable correlate in the lateral breast posterior depth on the CC view. COMPARISON: Comparison made to multiple prior, most recent August 15, 2025, and most remote May 01, 2021. TECHNIQUE: Digital breast tomosynthesis is performed in full-field ML 90 degrees and XCCL along with computer-aided detection (CAD). Synthesized 2D images are generated from the tomosynthesis. Spot compression tomosynthesis were obtained. FINDINGS: BREAST COMPOSITION: There are scattered areas of fibroglandular density. LEFT BREAST: Previously suggested asymmetry in the upper breast is pliable with spot compression, and most likely represented overlapping fibroglandular breast tissue. On today's images, the local parenchyma is similar to multiple prior studies as far back as 2020. Asymmetry in the lateral breast on the CC view is pliable with spot compression. Targeted ultrasound of the right breast was performed at the location of the mammographic finding. The survey throughout the upper outer quadrant did not reveal suspicious sonographic findings. US/US Breast LT Limited Mamm Only IMPRESSION: LEFT BREAST: Negative, no evidence of malignancy. Normal interval follow-up is recommended in 12 months. ASSESSMENT: BI-RADS: Category 1: Negative RECOMMENDATION: 1 year F/U Results were provided to the patient at time of visit by the technologist. This patient's information was entered into a reminder system with a target due date for their next mammogram. Electronically signed by: Humphrey Krishnamurthy MD 09/24/2025 10:22 AM GAGE
== END 2025-09-24 08:53 | disposition home or self-care (01) ==
LOC: HO.MAMMO 08:52
PROVIDERS: PCP Nurse Practitioner Family; Visit Provider Internal Medicine
DX: N64.89 Other specified disorders of breast (principal)
CPT/HCPCS: 76642; 77061; 77065

== ENCOUNTER → 2025-09-24 09:00 | Outpatient (BNV) | payer OTHER, SELFPAY | PROVIDERS: PCP Nurse Practitioner Family; Visit Provider Radiology Body Imaging | DX: R92.8 Other abnormal and inconclusive findings on diagnostic imaging of breast (principal) | CPT/HCPCS: 76642; 77061; 77065 ==